=== PATIENT | male | born 1980 | race Two or more races ===

== ENCOUNTER 2019-02-25 09:52 | Emergency (ER) | payer OTHER ==
[2019-02-25 10:08] VITALS: BP 136/87; PULSE 70; TEMP 97.9; BMI 35.4
--- NOTE | 2019-02-25 11:42 | PDOC ---
History of Present Illness - General Chief Complaint: Injury Stated Complaint: LT. HAND LARCERATION Time Seen by Provider: 02/25/19 11:17 History Source: Patient Exam Limitations: No Limitations - History of Present Illness Initial Comments: 02/25/19 11:37 Patient here for evaluation of left thumb states sustained an avulsion laceration last Monday, was seen at an urgent care where they used some type of cautery to states the bleeding from the flap of skin. Patient lost approximately 1 cm piece of padding of the left ulnar aspect thumb. States since that time has had pain, that radiates up to his wrist and difficulty flexing thumb due to this pain. Denies fever, redness, or any purulent drainage. Occurred: reports: just prior to arrival Severity: reports: mild, moderate Associated Symptoms (Fall): denies symptoms Past History - Travel Traveled outside of the country in the last 30 days: No Close contact w/someone who was outside of country & ill: No - Past Medical History Allergies/Adverse Reactions: Allergies Allergy/AdvReac Type Severity Reaction Status Date / Time No Known Allergies Allergy Verified 02/25/19 10:03 Home Medications: Ambulatory Orders NK [No Known Home Medication] 02/25/19 COPD: No - Immunization History Immunization Up to Date: Yes - Suicide/Smoking/Psychosocial Hx Smoking History: Never smoked Hx Alcohol Use: No Drug/Substance Use Hx: No Review of Systems - Review of Systems Able to Perform ROS?: Yes Is the patient limited Thai proficient: Yes Constitutional: Yes: Symptoms Reported, See HPI, Malaise HEENTM: No: Symptoms Reported Respiratory: No: Symptoms reported Integumentary: Yes: Symptoms Reported, See HPI, Lesions. No: Erythema All Other Systems: Reviewed and Negative *Physical Exam - Vital Signs Last Vital Signs Temp Pulse Resp BP Pulse Ox 97.9 F 70 17 136/87 99 02/25/19 10:04 02/25/19 10:04 02/25/19 10:04 02/25/19 10:04 02/25/19 10:04 - Physical Exam General Appearance: Yes: Nourished, Appropriately Dressed, Apparent Distress HEENT: positive: [place], Normal ENT Inspection, TMs Normal, Pharynx Normal Neck: positive: Supple Extremity: positive: Normal Range of Motion, Tender. negative: Normal Inspection, Swelling Integumentary: positive: Dry, Warm, Other (patient with full-thickness avulsion laceration to the radial aspect of his left thumb distal pad. Is a proximally 1 cm in size. Range of motion is intact however very painful to flex and extend due to pain at distal aspect. Nail is not involved. Her edema, no evidence of infection. Has multiple areas of cauterization/deadened skin. 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 No evidence of infection, however has residual tenderness due to probable exposure of nerve another vasculature that was cauterized. Wound was cleaned, dressed with Xeroform gauze/Telfa dressing/padding and splint applied. Patient encouraged to keep hand elevated, change dressing daily, and will be given a hand specialist for follow-up this week *DC/Admit/Observation/Transfer Diagnosis at time of Disposition: Laceration of finger Qualifiers: Encounter type: initial encounter Finger: thumb Damage to nail status: without damage Foreign body presence: without foreign body Laterality: left Qualified Code(s): S61.012A - Laceration without foreign body of left thumb without damage to nail, initial encounter - Discharge Dispostion Disposition: HOME Condition at time of disposition: Stable Decision to Admit order: No - Referrals Referrals: ON STAFF,NOT [Primary Care Provider] - Gene Guaman MD [Staff Physician] - - Patient Instructions Printed Discharge Instructions: DI for Avulsion Laceration (Not Requiring Sutures) Additional Instructions: Rest, elevate, avoid strenuous activity or heavy lifting until healed Leave dressing on for the next 48 hours, Then may remove outer Telfa dressing gently and wash area with soap and water. changing dressing and washing hand gently Reapply dressing daily for the next 5 days On day #6 keep the wound protected and cover as needed allowing wound to start to dry May use Tylenol or Motrin for pain relief - Post Discharge Activity Forms/Work/School Notes: Back to Work
== END 2019-02-25 11:54 | disposition home or self-care (01) ==
LOC: JERFT 09:52
PROC: 2W3EX1Z Immobilization of Right Hand using Splint (ICD-10-PCS; principal; 2019-02-25)
DX: S61.012D Laceration without foreign body of left thumb without damage to nail, subsequent encounter (principal)
CPT/HCPCS: 29125; 99281-25

== ENCOUNTER 2020-07-28 09:01 | Emergency (ER) | payer OTHER ==
[2020-07-28 09:09] VITALS: BMI 39.4
[2020-07-28] MEDS ORDERED: ACETAMINOPHEN 1000 MG/100 ML VIAL (NON FORMULARY) IVPB ONE (09:49)
[2020-07-28] MEDS ORDERED: FAMOTIDINE 20 MG/50 ML IVPB 20 MG/50 ML MG IVPB ONE ×2 (09:49→09:56)
[2020-07-28] MEDS ORDERED: MAG HYDROX/AL HYDROX/SIMETH 30 ML UNIT-DOSE CUP PO ONE (09:49)
[2020-07-28] MEDS ORDERED: ACETAMINOPHEN INJECTION 100 ML IVPB ONE (09:55)
[2020-07-28] MEDS ORDERED: MAG HYDROX/AL HYDROX/SIMETH 30 ML UNIT-DOSE CUP ONE (09:56)
[2020-07-28 10:00] LABS: PH,URINE 5.5 (5.0-8.0); URINE APPEARANCE CLEAR; URINE BILIRUBIN NEGATIVE (NEGATIVE); URINE COLOR YELLOW; URINE GLUCOSE (UA) NEGATIVE (NEGATIVE); URINE KETONE NEGATIVE (NEGATIVE); URINE LEUK ESTERASE NEGATIVE (NEGATIVE); URINE NITRITE NEGATIVE (NEGATIVE); URINE PROTEIN NEGATIVE (NEGATIVE); URINE UROBILINOGEN 0.2 mg/dL (0.2-1.0)
--- OUTSIDE RECORDS SUMMARY | 2020-07-28 10:09 | XMS ---
:1980 Author Organization [facility] Care Team Providers Name Role Phone Merrill Stapleton MD Unavailable Unavailable ED STAFF PHYSICIAN Unavailable Unavailable Re-disclosure Warning The records that you are about to access may contain information from federally- assisted alcohol or drug abuse programs. If such information is present, then the following federally mandated warning applies: This information has been disclosed to you from records protected by federal confidentiality rules (42 CFR part 2). The federal rules prohibit you from making any further disclosure of this information unless further disclosure is expressly permitted by the written consent of the person to whom it pertains or as otherwise permitted by 42 CFR part 2. A general authorization for the release of medical or other information is NOT sufficient for this purpose. The Federal rules restrict any use of the information to criminally investigate or prosecute any alcohol or drug abuse patient.The records that you are about to access may contain highly sensitive health information, the redisclosure of which is protected by Article 27-F of the [facility] Public Health law. If you continue you may haveaccess to information: Regarding HIV / AIDS; Provided by facilities licensed or operated by the [facility] Office of Mental Health; or Provided by the [facility] Office for People With Developmental Disabilities. If such information is present, then the following [facility] mandated warning applies: This information has been disclosed to you from confidential records which are protected by state law. State law prohibits you from making any further disclosure of this information without the specific written consent of the person to whom it pertains, or as otherwise permitted by law. Any unauthorized further disclosure in violation of state law may result in a fine or group home sentence or both. A general authorization for the release of medical or other information is NOT sufficient authorization for further disclosure. 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 Food allergy No Known Food No Known Food [facility] Drug allergy No Known Drug No Known Drug [facility] Encounters Encounter Providers Location Date Indications Data Source(s ) Emergency Attender: STAFF ED H 05/05/2020 [facility] STAFF PHYSICIAN 09:01:00 PM EDT [facility] - 05/05/2020 11:28:00 PM EDT Patient discharged. Emergency Attender: Merrill 10/07/2019 06:48:00 TESTICULAR PAIN Shadia Stapleton MD EST - 10/07/2019 [facility] 10:17:00 PM EST TESTICULAR PAIN [facility] Patient discharged. Emergency Attender: Merrill 09/30/2019 11:03:00 ABD PAIN Shadia Stapleton MD EST - 09/30/2019 [facility] 03:20:00 PM EST ABD PAIN AUTO Patient discharged. Immunizations Vaccine Date Status Description Data Source(s) Tdap 05/05/2020 10:47:00 PM EDT completed [facility] Medications Medication Brand Start Product Dose Route [facility] Indications Reaction Description Data Name Date Form Instructions Instructions Source(s) Sumatriptan Sumatr // TABLET 25 mg ORAL complet [facility] 25 MG Oral iptan 2017 ed [facility] Tablet Succin 07:59: Hospital [Imitrex] ate 00 PM Sumatriptan EDT Succinate Methocarbam Methoc 03/25/ TABLET 1500 ORAL complet [facility] ol 750 MG arbamo 2017 mg ed [facility] Oral Tablet l 07:59: Hospit al [Robaxin] 00 PM EDT Sumatriptan Sumatr // TABLET 25 mg ORAL complet [facility] 25 MG Oral iptan 2017 ed [facility] Tablet Succin 07:59: Hospital [Imitrex] ate 00 PM Sumatriptan EDT Succinate Methocarbam Methoc 03/25/ TABLET 1500 ORAL complet [facility] ol 750 MG arbamo 2017 mg ed [facility] Oral Tablet l 07:59: Hospit al [Robaxin] 00 PM EDT doxycycline Doxycy 05/12/ CAPSULE, 100 ORAL complet [facility] hyclate 100 nieves 2014 DELAYED mg [facility] MG Oral Hyclat 02:49: RELEASE [facility] Capsule e 00 PM [Vibramycin EDT ] Doxycycline Hyclate doxycycline Doxycy 05// CAPSULE, 100 ORAL complet [facility] hyclate 100 nieves 2014 DELAYED mg [facility] MG Oral Hyclat 02:49: RELEASE [facility]pi [facility] Capsule e 00 PM [Vibramycin EDT ] Doxycycline Hyclate Amoxicillin Amoxic 05// TABLET 875 ORAL complet [facility] 875 MG / illin/ 2014 mg ed [facility] Clavulanate Clavun 02:49: Hosp ital 125 MG Oral ate 00 PM Tablet 875-12 EDT Amoxicillin 5 /Clavunate Tablet 875-125 * Tablet* Amoxicillin Amoxic // TABLET 875 ORAL complet [facility] 875 MG / illin/ 2014 mg ed [facility] Clavulanate Clavun 02:49: Hosp ital 125 MG Oral ate 00 PM Tablet 875-12 EDT Amoxicillin 5 /Clavunate Tablet 875-125 * Tablet* Cephalexin Cephal // CAPSULE 500 ORAL complet [facility] 500 MG Oral exin 2014 mg ed [facility] Capsule Monohy 07:49: Hospital Cephalexin drate 00 AM Monohydrate EDT Cephalexin Cephal // CAPSULE 500 ORAL complet [facility] 500 MG Oral exin 2014 mg ed [facility] Capsule Monohy 07:49: Hospital Cephalexin drate 00 AM Monohydrate EDT Ibuprofen ibupro 1 complet [facility] 800 MG Oral fen ed [facility] Tablet 800 mg Medical ibuprofen Tablet Center 800 mg , Tablet, Ordere Ordered By: d By: Justin Pittman, PADirection PADire s: 1 tablet ctions oral every : 1 eight hours tablet PRN oral pain-modera every te eight hours PRN pain-m oderat e Cephalexin cephal 1 complet Jarek t 500 MG Oral exin ed [facility] Capsule 500 mg Medical cephalexin Capsul Center 500 mg e, Capsule, Ordere Ordered By: d By: Justin Pittman PADirection PADire s: 1 ctions capsule : 1 oral four capsul times daily e oral four times daily None UNSPECIF 1 complet [facility] {Each ed [facility] } [facility] None UNSPECIF 1 complet [facility] {Each ed [facility] Insurance Providers Payer name Policy type Policy ID Covered Covered constitution party's Policy P ivett / Coverage constitution party ID relationship to Romano Inf ormation type romano O [employer]JACKIE [id number] PT [id number] M MEDICAID [id number] PT [id number] [employer]IE [id number] PT [id number] A [employer] OF [id number] SP [id number] Exterity Problems, Conditions, and Diagnoses Code Display Name Description Problem Type Effective Dates Data Source(s) Y99.9 Unspecified UNSPECIFIED Diagnosis 05/05/2020 [facility] external cause EXTERNAL CAUSE 09:01:00 PM EDT [facility] status STATUS Y92.[address] IN Diagnosis 05/05/2020 Jarek Momin in unspecified UNSP NON-INSTITUT 09:01:00 PM ED T [facility] Center non-institutional (PRIVATE) (private) RESIDENCE residence as the PLACE place of occurrence of the external cause Y93.9 Activity, ACTIVITY, Diagnosis 05/05/2020 [facility] unspecified UNSPECIFIED 09:01:00 PM EDT Medical Center W13.0XXA Fall from, out of FALL FROM, OUT OF Diagnosis 05/05/2020 [facility] Liliane or through OR THROUGH 09:01:00 PM EDT Medical C enter balcony, initial [place], INITIAL encounter ENCOUNTER S80.11XA Contusion of CONTUSION OF Diagnosis 05/05/2020 [facility] right lower leg, RIGHT LOWER LEG, 09:01:00 PM E Medical Center initial encounter INITIAL ENCOUNTER S80.811A Abrasion, right ABRASION, RIGHT Diagnosis 05/05/2020 [place] lower leg, LOWER LEG, 09:01:00 PM EDT Medical C enter initial encounter INITIAL ENCOUNTER M79.606 Pain in leg, PAIN IN LEG, Diagnosis 05/05/2020 [facility] unspecified UNSPECIFIED 09:01:00 PM EDT Medical Center R31.9 Hematuria, R31.9 Diagnosis 10/07/2019 [place] unspecified 07:49:00 PM EST Hospital N50.811 Right testicular N50.811 [facility] Hospital N50.812 Left testicular N50.812 Diagnosis 10/07/2019 [facility] ins pain 07:49:00 PM EST Hospital R10.9 Unspecified R10.9 Diagnosis 09/30/2019 [place] abdominal pain 12:06:00 PM EST [facility] Surgeries/Procedures Procedure Description Date Indications Data Source(s) Echography of scrotum 10/07/2019 [facility] and contents (procedure) 12:00:00 AM EST Computed tomography of 09/30/2019 [facility] abdomen and pelvis with 12:00:00 AM EST intravenous and oral contrast NORMAL SALINE SOLUTION 09/30/2019 [facility] INFUS 12:00:00 AM EST LOCM 200-299MG/ML 09/30/2019 [facility] IODINE,1ML 12:00:00 AM EST LOW OSMOLAR 300-399 09/30/2019 [facility] mg/mi IOP 12:00:[address] abd & pelv w/contrast 09/30/2019 [facility] 12:00:00 AM EST Assay of lipase 09/30/2019 [facility] 12:00:00 AM EST Comprehen metabolic 09/30/2019 [facility] panel 12:00:00 AM EST Complete cbc w/auto diff 09/30/2019 [facility] wbc 12:00:00 AM EST Urinalysis auto w/o 09/30/2019 [facility] scope 12:00:00 AM EST Emergency dept visit 09/30/2019 [facility] 12:00:00 AM EST Computed tomography of 09/30/2019 [facility] abdomen and pelvis with 12:00:00 AM EST intravenous and oral contrast Results ID Date Data Source [id number] 07/20/2020 12:00:00 AM EDT [facility] Name Value Range Interpretation Code Description Data Ankita rce(s) Supporting Document(s ) SARS-CoV-2 [facility] This lab was ordered by DR.TIMOTHY CARSON and reported by [facility] [place]. ID Date Data Source [id number] 01/31/2020 09:26:00 PM EDT [facility] Name Value Range Interpretation Code Description Data Ankita rce(s) Supporting Document(s ) SARS-COV-2 [facility] PCR This lab was ordered by [facility] 997 and reported by [facility]. ID Date Data Source [id number] 01/13/2020 09:48:00 PM EDT [facility] Name Value Range Interpretation Code Description Data Ankita rce(s) Supporting Document(s ) 2019-NCOV [facility] RNA PNL XXX ELTON+PROBE This lab was ordered by [facility] [address] and reported by [facility]. ID Date Data Source [id number] 10/07/2019 08:47:00 PM [facility] Name Value Range Interpretation Description Data Sup porting Code Source(s) Document(s ) Hemoglobin.g NEGATIVE [facility] nal [Presence] in Stool --1st specimen ID Date Data Source [id number] 10/07/2019 08:38:00 PM [facility] Name Value Range Interpretation Description Data Sup porting Code Source(s) Document(s ) Leukocyte NEGATIVE [place] esterase [facility] [Presence] in Urine by Test strip ID Date Data Source [id number] 10/07/2019 08:38:00 PM [facility] Name Value Range Interpretation Description Data Sup porting Code Source(s) Document(s ) URINE NEGATIVE [place] NITRITES Hospital ID Date Data Source [id number] 10/07/2019 08:38:00 PM [facility] Name Value Range Interpretation Description Data Sup porting Code Source(s) Document(s ) Erythrocytes NEGATIVE [place] [#/volume] in Hospital Urine by Test strip ID Date Data Source [id number] 10/07/2019 08:38:00 PM EST [place] [facility] Name Value Range Interpretation Code Description Data Ankita rce(s) Supporting Document(s ) Bilirubin. NEGATIVE [place] total Hospital [Presence] in Urine by Test strip ID Date Data Source [id number] 10/07/2019 08:38:00 PM EST [place] [facility] Name Value Range Interpretation Description Data Sup porting Code Source(s) Document(s ) Urobilinogen 1.0 [place] [Units/volume] mg/dL Hospital in Urine by Test strip ID Date Data Source [id number] 10/07/2019 08:38:00 PM EST [place] Name Value Range Interpretation Description Data Sup porting Code Source(s) Document(s ) Ketones NEGATIVE [place] [Mass/volume Hospital ] in Urine by Test strip ID Date Data Source [id number] 10/07/2019 08:38:00 PM EST [place] [facility] Name Value Range Interpretation Description Data Sup porting Code Source(s) Document(s ) Glucose NEGATIVE [place] [Mass/volume Hospital ] in Urine by Test strip ID Date Data Source [id number] 10/07/2019 08:38:00 PM EST [place] Name Value Range Interpretation Description Data Sup porting Code Source(s) Document(s ) Protein NEGATIVE [place] [Presence] Hospital in Urine by Test strip ID Date Data Source [id number] 10/07/2019 08:38:00 PM EST [facility] Name Value Range Interpretation Code Description Data Ankita rce(s) Supporting Document(s ) pH of Urine 5.5 [place] by Test Hospital strip ID Date Data Source [id number] 10/07/2019 08:38:00 PM EST [place] [facility] Name Value Range Interpretation Code Description Data Supporting Source(s) Document(s ) Specific 1.029 [place] gravity of Hospital Urine by Test strip ID Date Data Source [id number] 10/07/2019 08:38:00 PM [facility] Name Value Range Interpretation Description Data Sup porting Code Source(s) Document(s ) Clarity in Urine CLEAR [place] by Refractometry Hospital automated ID Date Data Source [id number] 10/07/2019 08:38:00 PM [facility] Name Value Range Interpretation Code Description Data Ankita rce(s) Supporting Document(s ) Color of YELLOW [place] Urine Hospital ID Date Data Source [id number] 10/07/2019 07:45:00 PM [facility] Value Range Interpretation Description Data Sup porting Code Source(s) Document(s ) Aspartate 54 U/L [facility] aminotransferase [facility] [Enzymatic Hospital activity/volume] in Serum or Plasma ID Date Data Source [id number] 10/07/2019 07:45:00 PM [facility] Name Value Range Interpretation Description Data Sup porting Code Source(s) Document(s ) Alanine 89 U/L [place] aminotransferase [facility] [Enzymatic Hospital activity/volume] in Serum or Plasma ID Date Data Source [id number] 10/07/2019 07:45:00 PM [facility] Name Value Range Interpretation Description Data Sup porting Code Source(s) Document(s ) Alkaline 70 U/L [place] phosphatase Hospital [Enzymatic activity/volume ] in Serum or Plasma ID Date Data Source [id number] 10/07/2019 07:45:00 PM [facility] Name Value Range Interpretation Description Data Sup porting Code Source(s) Document(s ) Bilirubin.t 0.6 mg/dL [facility] [Mass/volum e] in Serum or Plasma ID Date Data Source [id number] 10/07/2019 07:45:00 PM EST [place] Name Value Range Interpretation Code Description Data Ankita rce(s) Supporting Document(s ) Albumin/Glob 1.8 [place] ulin [Mass Hospital Ratio] in Serum or Plasma ID Date Data Source [id number] 10/07/2019 07:45:00 PM EST [facility] Name Value Range Interpretation Description Data Sup porting Code Source(s) Document(s ) Albumin 4.8 g/dL [place] [Mass/volume Hospital ] in Serum or Plasma ID Date Data Source [id number] 10/07/2019 07:45:00 PM EST [facility] Name Value Range Interpretation Description Data Sup porting Code Source(s) Document(s ) Protein 7.5 g/dL [place] [Mass/volume Hospital ] in Serum or Plasma ID Date Data Source [id number] 10/07/2019 07:45:00 PM EST [facility] Name Value Range Interpretation Description Data Sup porting Code Source(s) Document(s ) Calcium 9.5 mg/dL [place] [Mass/volume Hospital ] in Serum or Plasma ID Date Data Source [id number] 10/07/2019 07:45:00 PM EST [place] [facility] Name Value Range Interpretation Code Description Data Ankita rce(s) Supporting Document(s ) Urea 23.8 [place] nitrogen/Cre Hospital atinine [Mass Ratio] in Serum or Plasma ID Date Data Source [id number] 10/07/2019 07:45:00 PM EST [place] [facility] Name Value Range Interpretation Description Data Sup porting Code Source(s) Document(s ) Creatinine 0.8 mg/dL [place] [Mass/volume] Hospital in Serum or Plasma ID Date Data Source [id number] 10/07/2019 07:45:00 PM EST [place] [facility] Name Value Range Interpretation Description Data Sup porting Code Source(s) Document(s ) Urea 19 mg/dL [place] nitrogen Hospital [Mass/volume ] in Serum or Plasma ID Date Data Source [id number] 10/07/2019 07:45:00 PM EST [place] [facility] Name Value Range Interpretation Code Description Data Ankita rce(s) Supporting Document(s ) Anion gap in 10 [place] Serum or Hospital Plasma ID Date Data Source [id number] 10/07/2019 07:45:00 PM [facility] Name Value Range Interpretation Description Data Sup porting Code Source(s) Document(s ) Carbon 31 mmol/L [place] dioxide, Hospital total [Moles/volu me] in Serum or Plasma ID Date Data Source [id number] 10/07/2019 07:45:00 PM EST [facility] Name Value Range Interpretation Description Data Sup porting Code Source(s) Document(s ) Chloride 100 [place] [Moles/volum mmol/L Hospital e] in Serum or Plasma ID Date Data Source [id number] 10/07/2019 07:45:00 PM EST [facility] Name Value Range Interpretation Description Data Sup porting Code Source(s) Document(s ) Potassium 4.1 [place] [Moles/volume mmol/L Hospital ] in Serum or Plasma ID Date Data Source [id number] 10/07/2019 07:45:00 PM EST [place] [facility] Name Value Range Interpretation Description Data Sup porting Code Source(s) Document(s ) Sodium 137 mmol/L [place] [Moles/volu Hospital me] in Serum or Plasma ID Date Data Source [id number] 10/07/2019 07:45:00 PM EST [place] [facility] Name Value Range Interpretation Description Data Sup porting Code Source(s) Document(s ) Glucose 102 mg/dL [place] [Mass/volume Hospital ] in Serum or Plasma ID Date Data Source [id number] 10/07/2019 07:45:00 PM EST [facility] Name Value Range Interpretation Code Description Data Supporting Source(s) Document(s ) NUCLEATED RBCS 0.0 % [place] (AUTO Hospital DIFF%)DIS ID Date Data Source [id number] 10/07/2019 07:45:00 PM [facility] Name Value Range Interpretation Description Data Sup porting Code Source(s) Document(s ) Differential AUTOMATED [place] cell count [facility] method - Blood ID Date Data Source [id number] 10/07/2019 07:45:00 PM [facility] Value Range Interpretation Description Data Sup porting Code Source(s) Document(s ) Immature 0.03 [place] granulocytes 10*3/uL Hospital [#/volume] in Blood by Automated count ID Date Data Source [id number] 10/07/2019 07:45:00 PM [facility] Name Value Range Interpretation Description Data Sup porting Code Source(s) Document(s ) Basophils 0.03 [place] [#/volume] in 10*3/uL Hospital Blood by Automated count ID Date Data Source [id number] 10/07/2019 07:45:00 PM [facility] Name Value Range Interpretation Description Data Sup porting Code Source(s) Document(s ) Eosinophils 0.06 [place] [#/volume] in 10*3/uL Hospital Blood by Automated count ID Date Data Source [id number] 10/07/2019 07:45:00 PM EST [facility] Name Value Range Interpretation Description Data Sup porting Code Source(s) Document(s ) Monocytes 0.52 [place] [#/volume] in 10*3/uL Hospital Blood by Automated count ID Date Data Source [id number] 10/07/2019 07:45:00 PM EST [facility] Value Range Interpretation Description Data Sup porting Code Source(s) Document(s ) Lymphocytes 2.02 [place] [#/volume] in 10*3/uL Hospital Blood by Automated count ID Date Data Source [id number] 10/07/2019 07:45:00 PM EST [facility] Value Range Interpretation Description Data Sup porting Code Source(s) Document(s ) Neutrophils 4.57 [place] [#/volume] in 10*3/uL [facility] Blood by Automated count ID Date Data Source [id number] 10/07/2019 07:45:00 PM [facility] Value Range Interpretation Description Data Sup porting Code Source(s) Document(s ) Nucleated 0.0 % [place] erythrocytes/10 Hospital 0 leukocytes [Ratio] in Blood by Automated count ID Date Data Source [id number] 10/07/2019 07:45:00 PM [facility] Value Range Interpretation Description Data Sup porting Code Source(s) Document(s ) Immature 0.4 % [place] granulocytes/10 Hospital 0 leukocytes in Blood by Automated count ID Date Data Source [id number] 10/07/2019 07:45:00 PM [facility] Value Range Interpretation Description Data Sup porting Code Source(s) Document(s ) Basophils/100 0.4 % [place] leukocytes in Hospital Blood by Automated count ID Date Data Source [id number] 10/07/2019 07:45:00 PM [facility] Value Range Interpretation Description Data Sup porting Code Source(s) Document(s ) Eosinophils/100 0.8 % [place] leukocytes in Hospital Blood by Automated count ID Date Data Source [id number] 10/07/2019 07:45:00 PM [facility] Value Range Interpretation Description Data Sup porting Code Source(s) Document(s ) Monocytes/100 7.2 % [place] leukocytes in Hospital Blood by Automated count ID Date Data Source [id number] 10/07/2019 07:45:00 PM EST [facility] Name Value Range Interpretation Description Data Sup porting Code Source(s) Document(s ) Lymphocytes/10 27.9 % [place] 0 leukocytes Hospital in Blood by Automated count ID Date Data Source [id number] 10/07/2019 07:45:00 PM EST [facility] Name Value Range Interpretation Description Data Sup porting Code Source(s) Document(s ) Neutrophils/10 63.3 % [place] 0 leukocytes Hospital in Blood by Automated count ID Date Data Source [id number] 10/07/2019 07:45:00 PM EST [facility] Value Range Interpretation Description Data Sup porting Code Source(s) Document(s ) Platelet mean 10.7 fL [place] volume Hospital [Entitic volume] in Blood by Automated count ID Date Data Source [id number] 10/07/2019 07:45:00 PM EST [facility] Value Range Interpretation Description Data Sup porting Code Source(s) Document(s ) Platelets 235 [place] [#/volume] in 10*3/uL Hospital Blood by Automated count ID Date Data Source [id number] 10/07/2019 07:45:00 PM [facility] Value Range Interpretation Description Data Sup porting Code Source(s) Document(s ) Erythrocyte 12.6 % [place] distribution Hospital width [Ratio] by Automated count ID Date Data Source [id number] 10/07/2019 07:45:00 PM EST [facility] Name Value Range Interpretation Description Data Sup porting Code Source(s) Document(s ) Erythrocyte mean 34.2 [place] corpuscular g/dL Hospital hemoglobin concentration [Mass/volume] by Automated count ID Date Data Source [id number] 10/07/2019 07:45:00 PM [facility] Value Range Interpretation Description Data Sup porting Code Source(s) Document(s ) Erythrocyte 29.2 pg [facility] corpuscular hemoglobin [Entitic mass] by Automated count ID Date Data Source [id number] 10/07/2019 07:45:00 PM [facility] Value Range Interpretation Description Data Sup porting Code Source(s) Document(s ) Erythrocyte 85.3 fL [facility] Hospital corpuscular volume [Entitic volume] by Automated count ID Date Data Source [id number] 10/07/2019 07:45:00 PM [facility] Value Range Interpretation Description Data Sup porting Code Source(s) Document(s ) Hematocrit 46.5 % [place] [Volume Hospital Fraction] of Blood by Automated count ID Date Data Source [id number] 10/07/2019 07:45:00 PM [facility] Value Range Interpretation Description Data Sup porting Code Source(s) Document(s ) Hemoglobin 15.9 g/dL [place] [Mass/volume] Hospital in Blood ID Date Data Source [id number] 10/07/2019 07:45:00 PM [facility] Value Range Interpretation Description Data Sup porting Code Source(s) Document(s ) Erythrocytes 5.45 [place] [#/volume] in 10*6/uL Hospital Blood by Automated count ID Date Data Source [id number] 10/07/2019 07:45:00 PM [facility] Value Range Interpretation Description Data Sup porting Code Source(s) Document(s ) Leukocytes 7.2 [place] [#/volume] in 10*3/uL Hospital Blood by Automated count ID Date Data Source [id number] 09/30/2019 01:20:00 PM EST [facility] Name Value Range Interpretation Description Data Sup porting Code Source(s) Document(s ) Leukocyte NEGATIVE [place] esterase [facility] [Presence] in Urine by Test strip ID Date Data Source [id number] 09/30/2019 01:20:00 PM EST [facility] Name Value Range Interpretation Description Data Sup porting Code Source(s) Document(s ) URINE NEGATIVE [place] NITRITES Hospital ID Date Data Source [id number] 09/30/2019 01:20:00 PM [facility] Name Value Range Interpretation Description Data Sup porting Code Source(s) Document(s ) Erythrocytes NEGATIVE [place] [#/volume] in Hospital Urine by Test strip ID Date Data Source [id number] 09/30/2019 01:20:00 PM [facility] Name Value Range Interpretation Code Description Data Ankita rce(s) Supporting Document(s ) Bilirubin. NEGATIVE [place] total Hospital [Presence] in Urine by Test strip ID Date Data Source [id number] 09/30/2019 01:20:00 PM [facility] Name Value Range Interpretation Description Data Sup porting Code Source(s) Document(s ) Urobilinogen 0.2 [place] [Units/volume] mg/dL Hospital in Urine by Test strip ID Date Data Source [id number] 09/30/2019 01:20:00 PM EST [facility] Name Value Range Interpretation Description Data Sup porting Code Source(s) Document(s ) Ketones NEGATIVE [place] [Mass/volume Hospital ] in Urine by Test strip ID Date Data Source [id number] 09/30/2019 01:20:00 PM [facility] Name Value Range Interpretation Description Data Sup porting Code Source(s) Document(s ) Glucose NEGATIVE [place] [Mass/volume Hospital ] in Urine by Test strip ID Date Data Source [id number] 09/30/2019 01:20:00 PM EST [facility] Name Value Range Interpretation Description Data Sup porting Code Source(s) Document(s ) Protein NEGATIVE [place] [Presence] Hospital in Urine by Test strip ID Date Data Source [id number] 09/30/2019 01:20:00 PM EST [facility] Name Value Range Interpretation Code Description Data Ankita rce(s) Supporting Document(s ) pH of Urine 5.5 [place] by Test Hospital strip ID Date Data Source [id number] 09/30/2019 01:20:00 PM EST [facility] Name Value Range Interpretation Code Description Data Supporting Source(s) Document(s ) Specific 1.015 [place] gravity of Hospital Urine by Test strip ID Date Data Source [id number] 09/30/2019 01:20:00 PM EST [facility] Name Value Range Interpretation Description Data Sup porting Code Source(s) Document(s ) Clarity in Urine CLEAR [facility] by [facility] automated ID Date Data Source [id number] 09/30/2019 01:20:00 PM EST [facility] Name Value Range Interpretation Code Description Data Ankita rce(s) Supporting Document(s ) Color of YELLOW [place] Urine Hospital ID Date Data Source [id number] 09/30/2019 12:12:00 PM EST [facility] Name Value Range Interpretation Code Description Data Ankita rce(s) Supporting Document(s ) Lipase 42 U/L [place] [Enzymatic Hospital activity/vo lume] in Serum or Plasma ID Date Data Source [id number] 09/30/2019 12:12:00 PM EST [facility] Name Value Range Interpretation Code Description Data Ankita rce(s) Supporting Document(s ) Lipase 42 U/L [place] [Enzymatic Hospital activity/vo lume] in Serum or Plasma ID Date Data Source [id number] 09/30/2019 12:12:00 PM [facility] Name Value Range Interpretation Description Data Sup porting Code Source(s) Document(s ) Aspartate 37 U/L [facility] aminotransferase [place] [Enzymatic Hospital activity/volume] in Serum or Plasma ID Date Data Source [id number] 09/30/2019 12:12:00 PM [facility] Value Range Interpretation Description Data Sup porting Code Source(s) Document(s ) Alanine 51 U/L [facility] aminotransferase [place] [Enzymatic Hospital activity/volume] in Serum or Plasma ID Date Data Source [id number] 09/30/2019 12:12:00 PM [facility] Name Value Range Interpretation Description Data Sup porting Code Source(s) Document(s ) Alkaline 63 U/L [place] phosphatase Hospital [Enzymatic activity/volume ] in Serum or Plasma ID Date Data Source [id number] 09/30/2019 12:12:00 PM [facility] Name Value Range Interpretation Description Data Sup porting Code Source(s) Document(s ) Bilirubin.t 0.4 mg/dL [facility] [Mass/volum e] in Serum or Plasma ID Date Data Source [id number] 09/30/2019 12:12:00 PM [facility] Value Range Interpretation Code Description Data Ankita rce(s) Supporting Document(s ) Albumin/Glob 2.0 [place] ulin [Mass Hospital Ratio] in Serum or Plasma ID Date Data Source [id number] 09/30/2019 12:12:00 PM [facility] Value Range Interpretation Description Data Sup porting Code Source(s) Document(s ) Albumin 4.7 g/dL [place] [Mass/volume Hospital ] in Serum or Plasma ID Date Data Source [id number] 09/30/2019 12:12:00 PM [facility] Name Value Range Interpretation Description Data Sup porting Code Source(s) Document(s ) Protein 7.1 g/dL [place] [Mass/volume Hospital ] in Serum or Plasma ID Date Data Source [id number] 09/30/2019 12:12:00 PM [facility] Name Value Range Interpretation Description Data Sup porting Code Source(s) Document(s ) Calcium 9.3 mg/dL [place] [Mass/volume Hospital ] in Serum or Plasma ID Date Data Source [id number] 09/30/2019 12:12:00 PM [facility] Name Value Range Interpretation Code Description Data Ankita rce(s) Supporting Document(s ) Urea 20.0 [place] nitrogen/Cre Hospital atinine [Mass Ratio] in Serum or Plasma ID Date Data Source [id number] 09/30/2019 12:12:00 PM [facility] Name Value Range Interpretation Description Data Sup porting Code Source(s) Document(s ) Creatinine 0.8 mg/dL [place] [Mass/volume] Hospital in Serum or Plasma ID Date Data Source [id number] 09/30/2019 12:12:00 PM [facility] Name Value Range Interpretation Description Data Sup porting Code Source(s) Document(s ) Urea 16 mg/dL [place] nitrogen Hospital [Mass/volume ] in Serum or Plasma ID Date Data Source [id number] 09/30/2019 12:12:00 PM [facility] Name Value Range Interpretation Code Description Data Ankita rce(s) Supporting Document(s ) Anion gap in 10 [place] Serum or Hospital Plasma ID Date Data Source [id number] 09/30/2019 12:12:00 PM EST [facility] Name Value Range Interpretation Description Data Sup porting Code Source(s) Document(s ) Carbon 28 mmol/L [place] dioxide, Hospital total [Moles/volu me] in Serum or Plasma ID Date Data Source [id number] 09/30/2019 12:12:00 PM EST [facility] Name Value Range Interpretation Description Data Sup porting Code Source(s) Document(s ) Chloride 104 [place] [Moles/volum mmol/L Hospital e] in Serum or Plasma ID Date Data Source [id number] 09/30/2019 12:12:00 PM EST [facility] Name Value Range Interpretation Description Data Sup porting Code Source(s) Document(s ) Potassium 4.3 [place] [Moles/volume mmol/L Hospital ] in Serum or Plasma ID Date Data Source [id number] 09/30/2019 12:12:00 PM EST [facility] Name Value Range Interpretation Description Data Sup porting Code Source(s) Document(s ) Sodium 138 mmol/L [place] [Moles/volu Hospital me] in Serum or Plasma ID Date Data Source [id number] 09/30/2019 12:12:00 PM EST [facility] Name Value Range Interpretation Description Data Sup porting Code Source(s) Document(s ) Glucose 129 mg/dL [place] [Mass/volume Hospital ] in Serum or Plasma ID Date Data Source [id number] 09/30/2019 12:12:00 PM EST [facility] Name Value Range Interpretation Code Description Data Supporting Source(s) Document(s ) NUCLEATED RBCS 0.0 % [place] (AUTO Hospital DIFF%)DIS ID Date Data Source [id number] 09/30/2019 12:12:00 PM [facility] Name Value Range Interpretation Description Data Sup porting Code Source(s) Document(s ) Differential AUTOMATED [place] cell count Hospital method - Blood ID Date Data Source [id number] 09/30/2019 12:12:00 PM [facility] Name Value Range Interpretation Description Data Sup porting Code Source(s) Document(s ) Immature 0.01 [place] granulocytes 10*3/uL Hospital [#/volume] in Blood by Automated count ID Date Data Source [id number] 09/30/2019 12:12:00 PM [facility] Name Value Range Interpretation Description Data Sup porting Code Source(s) Document(s ) Basophils 0.02 [place] [#/volume] in 10*3/uL Hospital Blood by Automated count ID Date Data Source [id number] 09/30/2019 12:12:00 PM [facility] Name Value Range Interpretation Description Data Sup porting Code Source(s) Document(s ) Eosinophils 0.06 [place] [#/volume] in 10*3/uL Hospital Blood by Automated count ID Date Data Source [id number] 09/30/2019 12:12:00 PM [facility] Name Value Range Interpretation Description Data Sup porting Code Source(s) Document(s ) Monocytes 0.37 [place] [#/volume] in 10*3/uL Hospital Blood by Automated count ID Date Data Source [id number] 09/30/2019 12:12:00 PM [facility] Name Value Range Interpretation Description Data Sup porting Code Source(s) Document(s ) Lymphocytes 1.72 [place] [#/volume] in 10*3/uL Hospital Blood by Automated count ID Date Data Source [id number] 09/30/2019 12:12:00 PM [facility] Value Range Interpretation Description Data Sup porting Code Source(s) Document(s ) Neutrophils 3.76 [place] [#/volume] in 10*3/uL Hospital Blood by Automated count ID Date Data Source [id number] 09/30/2019 12:12:00 PM [facility] Value Range Interpretation Description Data Sup porting Code Source(s) Document(s ) Nucleated 0.0 % [place] erythrocytes/10 Hospital 0 leukocytes [Ratio] in Blood by Automated count ID Date Data Source [id number] 09/30/2019 12:12:00 PM [facility] Value Range Interpretation Description Data Sup porting Code Source(s) Document(s ) Immature 0.2 % [place] granulocytes/10 Hospital 0 leukocytes in Blood by Automated count ID Date Data Source [id number] 09/30/2019 12:12:00 PM [facility] Value Range Interpretation Description Data Sup porting Code Source(s) Document(s ) Basophils/100 0.3 % [place] leukocytes in [facility] Blood by Automated count ID Date Data Source [id number] 09/30/2019 12:12:00 PM [facility] Value Range Interpretation Description Data Sup porting Code Source(s) Document(s ) Eosinophils/100 1.0 % [place] leukocytes in [facility] Blood by Automated count ID Date Data Source [id number] 09/30/2019 12:12:00 PM [facility] Value Range Interpretation Description Data Sup porting Code Source(s) Document(s ) Monocytes/100 6.2 % [place] leukocytes in [facility] Blood by Automated count ID Date Data Source [id number] 09/30/2019 12:12:00 PM [facility] Value Range Interpretation Description Data Sup porting Code Source(s) Document(s ) Lymphocytes/10 29.0 % [place] 0 leukocytes Hospital in Blood by Automated count ID Date Data Source [id number] 09/30/2019 12:12:00 PM [facility] Value Range Interpretation Description Data Sup porting Code Source(s) Document(s ) Neutrophils/10 63.3 % [place] 0 leukocytes Hospital in Blood by Automated count ID Date Data Source [id number] 09/30/2019 12:12:00 PM [facility] Value Range Interpretation Description Data Sup porting Code Source(s) Document(s ) Platelet mean 10.7 fL [place] volume Hospital [Entitic volume] in Blood by Automated count ID Date Data Source [id number] 09/30/2019 12:12:00 PM [facility] Value Range Interpretation Description Data Sup porting Code Source(s) Document(s ) Platelets 243 [place] [#/volume] in 10*3/uL Hospital Blood by Automated count ID Date Data Source [id number] 09/30/2019 12:12:00 PM [facility] Value Range Interpretation Description Data Sup porting Code Source(s) Document(s ) Erythrocyte 12.5 % [place] distribution Hospital width [Ratio] by Automated count ID Date Data Source [id number] 09/30/2019 12:12:00 PM [facility] Value Range Interpretation Description Data Sup porting Code Source(s) Document(s ) Erythrocyte mean 34.1 [place] corpuscular g/dL Hospital hemoglobin concentration [Mass/volume] by Automated count ID Date Data Source [id number] 09/30/2019 12:12:00 PM [facility] Value Range Interpretation Description Data Sup porting Code Source(s) Document(s ) Erythrocyte 29.0 pg [place] mean Hospital corpuscular hemoglobin [Entitic mass] by Automated count ID Date Data Source [id number] 09/30/2019 12:12:00 PM [facility] Name Value Range Interpretation Description Data Sup porting Code Source(s) Document(s ) Erythrocyte 85.0 fL [facility] corpuscular volume [Entitic volume] by Automated count ID Date Data Source [id number] 09/30/2019 12:12:00 PM [facility] Value Range Interpretation Description Data Sup porting Code Source(s) Document(s ) Hematocrit 44.9 % [place] [Volume Hospital Fraction] of Blood by Automated count ID Date Data Source [id number] 09/30/2019 12:12:00 PM [facility] Value Range Interpretation Description Data Sup porting Code Source(s) Document(s ) Hemoglobin 15.3 g/dL [place] [Mass/volume] Hospital in Blood ID Date Data Source [id number] 09/30/2019 12:12:00 PM [facility] Value Range Interpretation Description Data Sup porting Code Source(s) Document(s ) Erythrocytes 5.28 [place] [#/volume] in 10*6/uL Hospital Blood by Automated count ID Date Data Source [id number] 09/30/2019 12:12:00 PM [facility] Value Range Interpretation Description Data Sup porting Code Source(s) Document(s ) Leukocytes 5.9 [place] [#/volume] in 10*3/uL Hospital Blood by Automated count Procedure Social History Code Duration Value Status Description Data Source(s ) Smoking 05/05/2020 Denies Ever completed Denies Ever Smoked [facility] 10:51:00 PM EDT Smoked [facility] enter Smoking 05/05/2020 Denies Ever completed Denies Ever Smoked [facility] 10:10:00 PM EDT [facility] enter Smoking 05/05/2020 Denies Ever completed Denies Ever Smoked [facility] 09:36:00 PM EDT Smoked [facility] enter Smoking 09/30/2019 Never smoked completed Never smoked [facility] 11:56:00 AM EST tobacco tobacco (finding) Ho spital (finding) Smoking Unknown if ever completed Unknown if ever [facility] smoked smoked Hospital Vital Signs ID Date Data Source UNK Name Value Range Interpretation Code Description Data Source(s) Body temperature 36.530147 36.183630 [facility] Respiratory rate 18 /min 18 /min [facility] Oxygen saturation 98 % 98 % [facility] osephs in Arterial blood [facility] by Pulse oximetry Heart rate 89 /min 89 /min [facility] Diastolic blood 82 mm[Hg] 82 mm[Hg] [facility] pressure Medical Center Systolic blood 122 mm[Hg] 122 mm[Hg] [facility] pressure Medical Center Diastolic blood 88 mm[Hg] 88 mm[Hg] [facility] pressure Hospital Systolic blood 138 mm[Hg] 138 mm[Hg] [facility] pressure Hospital Respiratory rate 18 /min 18 /min [facility] Heart rate 111 /min 111 /min [facility] Body temperature 37.36495 37.25497 [facility] Body temperature 98.7 [degF] 98.7 [degF] [facility] Body mass index 43.0 kg/m2 43.0 kg/m2 [facility] (BMI) [Ratio] Hospital Body weight 299.83 299.83 [lb_av] [facility] [lb_av] Hospital Diastolic blood 69 mm[Hg] 69 mm[Hg] [facility] Hospital Systolic blood 111 mm[Hg] 111 mm[Hg] [facility] Hospital Respiratory rate 16 /min 16 /min [facility] Heart rate 73 /min 73 /min [facility] Body temperature 36.40229 36.31364 [facility] Body temperature 98.2 [degF] 98.2 [degF] [facility] Body mass index 43.0 kg/m2 43.0 kg/m2 [facility] (BMI) [Ratio] Hospital Body weight 299.83 299.83 [lb_av] [facility] [lb_av] Hospital Patient Treatment Plan of Care Planned Activity Planned Date Details Description Data Source (s) Ibuprofen 800 MG Oral [facility] Tablet [place] Cephalexin 500 MG Oral [facility] Capsule [place]
[2020-07-28 10:25] LABS: BASO % 0.3 % (0-2.0); EOS % 0.2 % (0-4.5); HEMATOCRIT 45.4 % (35.4-49); HEMOGLOBIN 15.3 GM/dL (11.7-16.9); LYMPH % 21.1 % (8-40); MCHC 33.6 g/dl (32.0-35.9); MEAN CELL VOLUME 86.2 fl (80-96); MEAN PLT VOLUME 9.3 fl (7.5-11.1); MONO % 6.1 % (3.8-10.2); NEUT % 72.3 % (42.8-82.8); PLATELET COUNT 275 K/MM3 (134-434); RBC 5.27 M/mm3 (4.00-5.60); RDW 13.5 % (11.9-15.9); WHITE BLOOD COUNT 11.2 K/mm3 (4.0-10.0)
--- NOTE | 2020-07-28 10:26 | PDOC ---
History of Present Illness - General Chief Complaint: Chest Pain Stated Complaint: CHEST PAIN Time Seen by Provider: 07/28/20 09:16 - History of Present Illness Initial Comments: 07/28/20 10:21 40yo M with history of GERD and an appendectomy presents with left sided chest and LUQ pain radiating to the right back. States he has had this pain before, but it usually goes away after minutes. This time, it began last night as he was lying down in bed playing with his daughter. Was intermittent, and now constant since this morning. Not exertional. Worse with deep breaths and when lying down. Better when sitting up. Denies n/v, SOB, diaphoresis. One episode of non-bloody diarrhea yesterday, and a normal BM this morning. Denies urinary symptoms. Called his GI, who recommended he come to the ER. PMH/PSH: as above Meds: none Allergies: naproxen (hives) ETOH: 1-2 beers per month Tob: denies Drugs: denies ROS GENERAL/CONSTITUTIONAL: No fever or chills. No weakness. HEAD, EYES, EARS, NOSE AND THROAT: No change in vision. No ear pain or discharge. No sore throat. CARDIOVASCULAR: left chest/RUQ/upper right back pain. no shortness of breath RESPIRATORY: No cough, wheezing, or hemoptysis. GASTROINTESTINAL: No nausea, vomiting, diarrhea or constipation. GENITOURINARY: No dysuria, frequency, or change in urination. MUSCULOSKELETAL: No joint or muscle swelling or pain. SKIN: No rash NEUROLOGIC: No headache, vertigo, loss of consciousness, or change in strength/sensation. ENDOCRINE: No increased thirst. No abnormal weight change HEMATOLOGIC/LYMPHATIC: No anemia, easy bleeding, or history of blood clots. ALLERGIC/IMMUNOLOGIC: No hives or skin allergy. PE GENERAL: Awake, alert, and fully oriented, in no acute distress HEAD: No signs of trauma, normocephalic, atraumatic EYES: PERRLA, EOMI, sclera anicteric, conjunctiva clear ENT: Auricles normal inspection, hearing grossly normal, nares patent, oropharynx clear without exudates. Moist mucosa NECK: Normal ROM, supple, no lymphadenopathy, JVD, or masses LUNGS: No distress, speaks full sentences, clear to auscultation bilaterally HEART: Regular rate and rhythm, normal S1 and S2, no murmurs, rubs or gallops, peripheral pulses normal and equal bilaterally. Reproducible right chest pain, as well as right thoracic paraspinal tenderness. ABDOMEN: Soft, RUQ tenderness withouot guarding or rebound. +Burt's EXTREMITIES : Normal inspection, Normal range of motion, no edema. No clubbing or cyanosis. NEUROLOGICAL: Normal speech, normal gait, no focal sensorimotor deficits SKIN: Warm, Dry, normal turgor, no rashes or lesions noted Vital Signs Temp Pulse Resp BP Pulse Ox 98.1 F 78 19 143/99 97 07/28/20 09:06 07/28/20 09:06 07/28/20 09:06 07/28/20 09:06 07/28/20 09:06 MDM: 40yo M with history of GERD and an appendectomy presents with left sided chest and LUQ pain radiating to the right back. Exam concerning for RUQ pathology. DDx includes cholecystitis, ACS, pancreatitis, nephrolithiasis. -EKG -CBC, CMP, lipase, trops, UA/UC -RUQ sono -Pepcid, maalox, tylenol 07/28/20 11:12 EKG: NSR, rate 68, normal axis and intervals, Q wave in III, no ischemic ST-T changes Labs: notable for WBC 11.2 without shift, ALT 65 RUQ: Real time examination of the abdomen demonstrates the following: The study is severely limited due to the patient's size and overlying bowel gas. The gallbladder is not well visualized but appears to be clear of calculi. There is no evidence of intra or extrahepatic biliary duct dilatation. The liver is extremely hyperechoic in texture consistent with extensive diffuse fatty infiltration. No mass lesions are identified within the liver. Hepatopedal flow is documented within the main portal vein. The pancreas cannot be visualized. There is no evidence of hydronephrosis or acute abnormalities of the right kidney. There is no evidence of AAA. IMPRESSION: Severely limited study with extensive diffuse fatty infiltration of the liver. There is no definite evidence of cholelithiasis or acute cholecystitis. Please see above discussion. 07/28/20 17:51 Given negative workup so far, CXR was obtained, and it was negative for acute pathology. Patient reports improvement in pain DC home with PCP and GI f/u Past History - Medical History Allergies/Adverse Reactions: Allergies Allergy/AdvReac Type Severity Reaction Status Date / Time No Known Allergies Allergy Verified 02/25/19 10:03 Home Medications: Ambulatory Orders NK [No Known Home Medication] 02/25/19 COPD: No - Immunization History Immunization Up to Date: Yes - Psycho-Social/Smoking History Smoking History: Never smoked Have you smoked in the past 12 months: No Information on smoking cessation initiated: No - Substance Abuse Hx (Audit-C & DAST Scrn) How often the patient has a drink containing alcohol: Never Score: In Men: 4 or > Positive; In Women: 3 or > Positive: 0 Screen Result (Pos requires Nsg. Audit-10AR): Negative In the last yr the pt used illegal drug/Rx for NonMed reason: No Score: Yes response is considered Positive: 0 Screen Result (Positive result requires Nsg. DAST-10): Negative *Physical Exam - Vital Signs Last Vital Signs Temp Pulse Resp BP Pulse Ox 98.1 F 78 19 143/99 97 07/28/20 09:06 07/28/20 09:06 07/28/20 09:06 07/28/20 09:06 07/28/20 09:06 ED Treatment Course - LABORATORY CBC & Chemistry Diagram: 07/28/20 10:00 07/28/20 10:00 - ADDITIONAL ORDERS Additional order review: Laboratory Results 07/28/20 09:40 Urine Color Yellow Urine Appearance Clear Urine pH 5.5 Ur Specific [place] 1.018 Urine Protein Negative Urine Glucose (UA) Negative Urine Ketones Negative Urine Blood Negative Urine Nitrite Negative Urine Bilirubin Negative Urine Urobilinogen 0.2 Ur Leukocyte Esterase Negative - RADIOLOGY Radiology Studies Ordered: Category Date Time Status ABDOMEN US -LIMITED [US] Stat Ultrasound 07/28/20 09:48 Ordered - Medications Given in the ED: ED Medications Discontinued Medications Generic Name Dose Route Start Last Admin Trade Name Freq PRN Reason Stop Dose Admin Acetaminophen 1,000 mg 07/28/20 09:49 07/28/20 10:06 Ofirmev Injection - IVPB 07/28/20 09:50 1,000 mg ONCE ONE Administration Al Hydroxide/Mg Hydroxide 30 ml 07/28/20 09:49 07/28/20 10:06 Mylanta Oral Suspension - PO 07/28/20 09:50 30 ml ONCE ONE Administration Discharge - Discharge Information Problems reviewed: Yes Clinical Impression/Diagnosis: Chest pain Qualifiers: Chest pain type: unspecified Qualified Code(s): R07.9 - Chest pain, unspecified Abdominal pain Qualifiers: Abdominal location: right upper quadrant Qualified Code(s): R10.11 - Right upper quadrant pain Back pain Qualifiers: Back pain location: thoracic back pain Chronicity: acute Back pain laterality: right Qualified Code(s): M54.6 - Pain in thoracic spine Condition: Improved Disposition: HOME - Admission No - Follow up/Referral Referrals: Austin Mancia DO [Staff Physician] - - Patient Discharge Instructions Additional Instructions: You were seen in the ER for right sided chest/abdomen/back pain. We did a physical exam, EKG, labs, chest x-ray, and abdominal ultrasound, which did not show any emergent problems. The ultrasound did show a fatty liver, and one of your liver enzymes was elevated. This is not the cause of your pain, but please follow up about this with your primary doctor. We gave you medicine which improved but did not completely relieve your pain. Please follow up with your primary doctor and director prospect within three days. You can take tylenol for pain as directed on the label. Please return for severe pain, persistent vomiting, inability to eat, fever, or any other concerning symptoms. - Post Discharge Activity
--- NOTE | 2020-07-28 10:41 | PDOC ---
Documentation entered by Dorothy Wilson SCRIBE, acting as scribe for Rufino Sweet MD. Rufino Sweet MD: This documentation has been prepared by the Steve ruiz Xhesika, SCRIBE, under my direction and personally reviewed by me in its entirety. I confirm that the documentation accurately reflects all work, treatment, procedures, and medical decision making performed by me. Attending Attestation - Resident Resident Name: CherylTrino - ED Attending Attestation I have performed the following: I have examined & evaluated the patient, The case was reviewed & discussed with the resident, I agree w/resident's findings & plan, Exceptions are as noted - HPI HPI: 07/28/20 09:26 The patient is a 40 year old male with no significant PMH of who presents to the emergency department for R sided pain. Pt describes his CP as R sided (pointing to his RUQ and up to his R shoulder), sharp in nature. The pain started suddenly last night, lasts for a few minutes at a time, then resolves, but since this AM has been more constant. He endorses mild nausea ith the pain but denies any vomiting, fever/chills, sob/crisostomo. He had this pain once several months ago, also in the evening, but resolved and never recurred until last night. pt has hx of acid reflux and takes meds for it and this feels differently. No exertional sx. The patient denies shortness of breath, headache and dizziness. Denies fever, chills, cough, vomiting, diarrhea and constipation. Allergies: NKDA - Physicial Exam PE: 07/28/20 10:13 GENERAL: The patient is awake, alert, and fully oriented, Nontoxic - in no acute distress. HEAD: Normocephalic, atraumatic. EYES: extraocular movements intact, sclera anicteric, conjunctiva clear. ENT: Normal voice, Moist mucous membranes. NECK: Normal range of motion, supple LUNGS: Breath sounds equal, clear to auscultation bilaterally. No wheezes, no rhonchi, no rales. HEART: Regular rate and rhythm, normal S1 and S2 without murmur, rub or gallop. ABDOMEN: Soft, mild RUQ tenderness, +murphies, No guarding, no rebound. No CVA tenderness EXTREMITIES: Normal range of motion, no edema. NEUROLOGICAL: No facial assymetry, Normal speech, PSYCH: Normal mood, normal affect. SKIN: Warm, Dry, normal turgor, - Medical Decision Making 07/28/20 09:51 40y M presents with sudden onset of RUQ/R sided abdominal pain last night that i s waxing and waning associated with nausea, and pt has RUQ tenderness suspect gall stones, consider panceratitis, gastirits, kidney stones will obtain labs, RUQ US, UA will give analgesia essence givens Heart Score/ECG Review - ECG Impressions Comment:: 07/28/20 10:41 Twelve-lead EKG was performed and reviewed by me. There is normal sinus rhythm with a normal rate. rateof 68 The axis is normal. The intervals are normal. There is normal R wave progression There are no ST or T wave abnormalities. Impression: Normal twelve-lead EKG Discharge - Discharge Information Problems reviewed: Yes Clinical Impression/Diagnosis: Chest pain Qualifiers: Chest pain type: unspecified Qualified Code(s): R07.9 - Chest pain, unspecified Abdominal pain Qualifiers: Abdominal location: right upper quadrant Qualified Code(s): R10.11 - Right upper quadrant pain Back pain Qualifiers: Back pain location: thoracic back pain Chronicity: acute Back pain laterality: right Qualified Code(s): M54.6 - Pain in thoracic spine Disposition: HOME - Admission No - Follow up/Referral Referrals: Austin Mancia DO [Staff Physician] - - Patient Discharge Instructions Additional Instructions: You were seen in the ER for right sided chest/abdomen/back pain. We did a physical exam, EKG, labs, chest x-ray, and abdominal ultrasound, which did not show any emergent problems. The ultrasound did show a fatty liver, and one of your liver enzymes was elevated. This is not the cause of your pain, but please follow up about this with your primary doctor. We gave you medicine which improved but did not completely relieve your pain. Please follow up with your primary doctor and surgical first assistant within three days. You can take tylenol for pain as directed on the label. Please return for severe pain, persistent vomiting, inability to eat, fever, or any other concerning symptoms. - Post Discharge Activity
[2020-07-28 10:53] LABS: ALBUMIN 4.1 g/dl (3.4-5.0); ALK PHOS 63 U/L (45-117); ANION GAP 7 MMOL/L (8-16); BILIRUBIN,TOTAL 0.6 mg/dL (0.2-1); BLOOD UREA NITROGEN 15.7 mg/dL (7-18); CALCIUM 9.4 mg/dL (8.5-10.1); CHLORIDE 106 mmol/L (98-107); CO2 25 mmol/L (21-32); CREATININE 0.9 mg/dL (0.55-1.3); GLUCOSE,RANDOM 92 mg/dL (74-106); LIPASE 159 U/L (73-393); POTASSIUM 4.5 mmol/L (3.5-5.1); SGOT/AST 26 U/L (15-37); SGPT/ALT 65 U/L (13-61); SODIUM 138 mmol/L (136-145); TOT PROT 8.1 g/dl (6.4-8.2)
[2020-07-28] MEDS ORDERED: KETOROLAC TROMETHAMINE 15 MG/ML VIAL IVPUSH ONE (12:29)
[2020-07-28] MEDS ORDERED: KETOROLAC TROMETHAMINE 15 MG/ML VIAL ONE (13:02)
[2020-07-28 16:11] VITALS: BP 150/79; PULSE 79; TEMP 98.4
--- NOTE | 2020-07-29 11:00 | EKG ---
Test Reason : Blood Pressure : / mmHG Vent. Rate : 068 BPM Atrial Rate : 068 BPM P-R Int : 146 ms QRS Dur : 104 ms QT Int : 392 ms P-R-T Axes : 062 049 041 degrees QTc Int : 416 ms NORMAL SINUS RHYTHM POSSIBLE LEFT ATRIAL ENLARGEMENT BORDERLINE ECG WHEN COMPARED WITH ECG OF 30-MAY-2000 04:05, NO SIGNIFICANT CHANGE WAS FOUND Confirmed by MD Harvey Edward ([id number]) on 07/29/2020 11:00:34 AM Referred By: Confirmed By:Abel Harvey MD
== END 2020-07-28 15:55 | disposition home or self-care (01) ==
LOC: JER 09:01
PROC: 3E0333Z Introduction of Anti-inflammatory into Peripheral Vein, Percutaneous Approach (ICD-10-PCS; principal; 2020-07-28)
PROC: 3E033GC Introduction of Other Therapeutic Substance into Peripheral Vein, Percutaneous Approach (ICD-10-PCS; 2020-07-28)
DX: R10.11 Right upper quadrant pain (principal); R07.9 Chest pain, unspecified; M54.6 Pain in thoracic spine
CPT/HCPCS: 36415; 71046-TC-FY; 76705-TC; 80053; 81003; 83690; 84484; 85025; 87086; 93005; 93010; 96374; 96375; 99285-25; J0131

== ENCOUNTER 2020-08-03 11:19 | Emergency (ER) | payer OTHER ==
[2020-08-03 11:31] VITALS: BMI 39.4
--- OUTSIDE RECORDS SUMMARY | 2020-08-03 12:00 | XMS ---
:1980 Author Organization [facility] Care Team Providers Name Role Phone Merrill [...] is protected by Article 27-F of the [place] State Public Health law. If you continue you may haveaccess to information: Regarding HIV / AIDS; Provided by facilities licensed or operated by the [facility] Office of Mental Health; or Provided by the [facility] Office for People With Developmental Disabilities. If such information is present, then the following [facility] mandated warning applies: This information has [...] law may result in a fine or [place] health [place] sentence or both. A general authorization for the release of medical or other information is NOT sufficient authorization for further disclosure. 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 Observation Data S ource(s) Description Advance No completed [facility] Advance No completed [facility] Allergies and Adverse Reactions Type Description Substance Reaction Status Data Source(s ) Drug allergy No Known Drug No Known Drug NO KNOWN ALLERG [facility] Food allergy No Known Food No Known Food [facility] Drug allergy No Known Drug No Known Drug [facility] Encounters Encounter Providers Location Date Indications Data Source(s ) Emergency Attender: STAFF ED H 05/05/2020 [facility] STAFF PHYSICIAN 09:01:00 PM EDT [facility] - 05/05/2020 11:28:00 PM EDT Patient discharged. [...] Source(s) Tdap 05/05/2020 10:47:00 PM EDT completed [facility] Medications Medication Brand Start Product Dose Route Administrative Pharmacy [facility] Indications Reaction Description Data Name Date Form Instructions Instructions Source(s) Sumatriptan Sumatr 03/25/ TABLET 25 mg ORAL complet [facility] 25 MG Oral iptan 2016 [facility] [place] Tablet Succin 07:59: Hospital [Imitrex] ate 00 PM Sumatriptan EDT Succinate Methocarbam Methoc 05/27/ TABLET 1500 ORAL complet [facility] 750 MG arbamo 2017 mg ed [place] Oral Tablet l 07:59: Hospit al [Robaxin] 00 PM EDT Sumatriptan Sumatr 05/27/ TABLET 25 mg ORAL complet [facility] 25 MG Oral iptan 2017 ed [place] Tablet Succin 07:59: Hospital [Imitrex] ate 00 PM Sumatriptan EDT Succinate Methocarbam Methoc 05/27/ TABLET 1500 ORAL complet [facility] 750 MG arbamo 2017 mg ed [place] Oral Tablet l 07:59: Hospit al [Robaxin] 00 PM EDT doxycycline Doxycy 05/12/ CAPSULE, 100 ORAL complet White hyclate 100 nieves 2014 DELAYED [facility] MG Oral Hyclat 02:49: RELEASE [facility]pi [facility] Capsule e 00 PM [Vibramycin EDT ] Doxycycline Hyclate doxycycline Doxycy 05/12/ CAPSULE, 100 ORAL complet [facility] hyclate 100 nieves 2014 DELAYED [facility] MG Oral Hyclat 02:49: RELEASE [facility] Capsule e 00 PM [Vibramycin EDT ] Doxycycline Hyclate Amoxicillin Amoxic 05/12/ TABLET 875 ORAL complet [facility] 875 MG / illin/ 2014 mg ed [place] Clavulanate Clavun 02:49: Hosp ital 125 MG Oral ate 00 PM Tablet 875-12 EDT Amoxicillin 5 /Clavunate Tablet 875-125 * Tablet* Amoxicillin Amoxic 05/12/ TABLET 875 ORAL complet [facility] 875 MG / illin/ 2014 mg ed [place] Clavulanate Clavun 02:49: Hosp ital 125 MG Oral ate 00 PM Tablet 875-12 EDT Amoxicillin 5 /Clavunate Tablet 875-125 * Tablet* Cephalexin Cephal 05/03/ CAPSULE 500 ORAL complet [facility] 500 MG Oral exin 2014 mg ed [place] Capsule Monohy 07:49: Hospital Cephalexin drate 00 AM Monohydrate EDT Cephalexin Cephal 05/03/ CAPSULE 500 ORAL complet [facility] 500 MG Oral exin 2014 mg ed [place] Capsule Monohy 07:49: Hospital Cephalexin drate 00 AM Monohydrate EDT Ibuprofen ibupro 1 complet [facility] 800 MG Oral fen ed Liliane Tablet 800 mg Medical ibuprofen Tablet Center 800 mg , Tablet, Ordere Ordered By: d By: Leydi Leydi Green, Green, PADirection PADire s: 1 tablet ctions oral [...] UNSPECIF 1 complet [facility] [place] [facility] None UNSPECIF 1 complet [facility] [place] [facility] Insurance Providers Payer name Policy type Policy ID Covered Covered democrat's Policy P ivett / Coverage democrat ID relationship to Romano Inf ormation type romano BERENICE [id number] SP [id number] 000 [facility] NON [facility] CARE [id number] 1 [id number] [facility] WELLCARE OF [id number] SP [id number] [employer] [facility] O [facility] [id number] PT [id number] M MEDICAID [id number] PT [id number] [facility] [id number] PT [id number] A Problems, Conditions, and Diagnoses Code Display Name Description Problem Type Effective Dates Data Source(s) Y99.9 Unspecified UNSPECIFIED Diagnosis 05/05/2020 [facility] external cause EXTERNAL CAUSE 09:01:00 PM EDT [facility] status STATUS Y92.[address] IN Diagnosis 05/05/2020 Jarek Momin in unspecified UNSP NON-INSTITUT 09:01:00 PM ED T [facility] non-institutional (PRIVATE) (private) RESIDENCE residence as the PLACE place of occurrence of the external cause Y93.9 Activity, ACTIVITY, Diagnosis 05/05/2020 [facility] unspecified UNSPECIFIED 09:01:00 PM EDT Medical Center W13.0XXA Fall from, out of FALL FROM, OUT OF Diagnosis 05/05/2020 [facility] or through OR THROUGH 09:01:00 PM EDT Medical C enter balpro, initial [place], INITIAL encounter ENCOUNTER S80.11XA Contusion of CONTUSION OF Diagnosis 05/05/2020 [facility] right lower leg, RIGHT LOWER LEG, 09:01:00 PM E Medical Center initial encounter INITIAL ENCOUNTER S80.811A Abrasion, right ABRASION, RIGHT Diagnosis 05/05/2020 Jarek Momin lower leg, LOWER LEG, 09:01:00 PM EDT Medical C enter initial encounter INITIAL ENCOUNTER M79.606 Pain in leg, PAIN IN LEG, Diagnosis 05/05/2020 [facility] unspecified UNSPECIFIED 09:01:00 PM EDT Medical Center R31.9 Hematuria, R31.9 Diagnosis 10/07/2019 [place] unspecified 07:49:00 PM EST Hospital N50.811 Right testicular N50.811 Diagnosis 10/07/2019 [facility] pain 07:49:00 PM EST Hospital N50.812 Left testicular N50.812 Diagnosis 10/07/2019 [facility] pain 07:49:00 PM EST Hospital R10.9 Unspecified R10.9 Diagnosis 09/30/2019 [place] [facility] abdominal pain 12:06:00 PM EST [facility]pi [facility] Surgeries/Procedures Procedure Description Date Indications Data Source(s) Echography of scrotum 10/07/2019 [facility] and contents (procedure) 12:00:00 AM EST Computed tomography of 09/30/2019 [facility] abdomen and pelvis with 12:00:00 AM EST intravenous and oral contrast NORMAL SALINE SOLUTION 09/30/2019 [facility] INFUS 12:00:00 AM EST LOCM 200-299MG/ML 09/30/2019 [facility] IODINE,1ML 12:00:00 AM EST LOW OSMOLAR 300-399 09/30/2019 [facility] mg/mi IOP 12:00:[address] abd & pelv w/contrast 09/30/2019 [facility] 12:00:00 AM EST Assay of lipase 09/30/2019 [facility] 12:00:00 AM EST Comprehen metabolic 09/30/2019 [facility] panel 12:00:00 AM EST Complete cbc w/auto diff 09/30/2019 [facility] wbc 12:00:00 AM EST Urinalysis auto w/o 09/30/2019 [facility] scope 12:00:00 AM EST Emergency dept visit 09/30/2019 [facility] 12:00:00 AM EST Computed tomography of 09/30/2019 [facility] abdomen and pelvis with 12:00:00 AM EST intravenous and oral contrast Results ID Date Data Source [id number] 07/20/2020 12:00:00 AM EDT [facility] Name Value Range Interpretation Code Description Data Ankita rce(s) Supporting Document(s ) SARS-CoV-2 [facility] This lab was ordered by DR.TIMOTHY CARSON and reported by [employer]. ID Date Data Source [id number] 01/31/2020 09:26:00 PM EDT [facility] Name Value Range Interpretation Code Description Data Ankita rce(s) Supporting Document(s ) SARS-COV-2 [facility] PCR This lab was ordered by [facility] and reported by [facility]. ID Date Data Source [id number] 01/13/2020 09:48:00 PM EDT [facility] Name Value Range Interpretation Code Description Data Ankita rce(s) Supporting Document(s ) 2019-NCOV [facility] RNA PNL XXX ELTON+PROBE This lab was ordered by [facility] Chem [address] and reported by [facility]. ID Date Data Source [id number] 10/07/2019 08:47:00 PM EST [facility] Name Value Range Interpretation Description Data Sup porting Code Source(s) Document(s ) Hemoglobin.g NEGATIVE [facility] nal [Presence] in Stool --1st specimen ID Date Data Source [id number] 10/07/2019 08:38:00 PM [facility] Name Value Range Interpretation Description Data Sup porting Code Source(s) Document(s ) Leukocyte NEGATIVE [facility] [Presence] in Urine by Test strip ID Date Data Source [id number] 10/07/2019 08:38:00 PM EST [facility] Name Value Range Interpretation Description Data Sup porting Code Source(s) Document(s ) URINE NEGATIVE [facility] ID Date Data Source [id number] 10/07/2019 08:38:00 PM EST [facility] Name Value Range Interpretation Description Data Sup porting Code Source(s) Document(s ) Erythrocytes NEGATIVE [place] [#/volume] in Hospital Urine by Test strip ID Date Data Source [id number] 10/07/2019 08:38:00 PM EST [facility] Name Value Range Interpretation Code Description Data Ankita rce(s) Supporting Document(s ) Bilirubin. NEGATIVE [facility] total Hospital [Presence] in Urine by Test strip ID Date Data Source [id number] 10/07/2019 08:38:00 PM EST [facility] Name Value Range Interpretation Description Data Sup porting Code Source(s) Document(s ) Urobilinogen 1.0 [facility] [Units/volume] mg/dL Hospital in Urine by Test strip ID Date Data Source [id number] 10/07/2019 08:38:00 PM [facility] Name Value Range Interpretation Description Data Sup porting Code Source(s) Document(s ) Ketones NEGATIVE [facility] [Mass/volume Hospital ] in Urine by Test strip ID Date Data Source [id number] 10/07/2019 08:38:00 PM [facility] Name Value Range Interpretation Description Data Sup porting Code Source(s) Document(s ) Glucose NEGATIVE [place] [facility] [Mass/volume Hospital ] in Urine by Test strip ID Date Data Source [id number] 10/07/2019 08:38:00 PM [facility] Name Value Range Interpretation Description Data Sup porting Code Source(s) Document(s ) Protein NEGATIVE [place] [facility] [Presence] Hospital in Urine by Test strip ID Date Data Source [id number] 10/07/2019 08:38:00 PM [facility] Value Range Interpretation Code Description Data Ankita rce(s) Supporting Document(s ) pH of Urine 5.5 [place] by Test Hospital strip ID Date Data Source [id number] 10/07/2019 08:38:00 PM [facility] Name Value Range Interpretation Code Description Data Supporting Source(s) Document(s ) Specific 1.029 [facility] gravity of Hospital Urine by Test strip ID Date Data Source [id number] 10/07/2019 08:38:00 PM [facility] Value Range Interpretation Description Data Sup porting Code Source(s) Document(s ) Clarity in Urine CLEAR [place] [facility] by Refractometry Hospital automated ID Date Data Source [id number] 10/07/2019 08:38:00 PM [facility] Value Range Interpretation Code Description Data Ankita rce(s) Supporting Document(s ) Color of YELLOW [facility] Urine Hospital ID Date Data Source [id number] 10/07/2019 07:45:00 PM [facility] Name Value Range Interpretation Description Data Sup porting Code Source(s) Document(s ) Aspartate 54 U/L [facility] aminotransferase [place] [Enzymatic Hospital activity/volume] in Serum or Plasma ID Date Data Source [id number] 10/07/2019 07:45:00 PM [facility] Value Range Interpretation Description Data Sup porting Code Source(s) Document(s ) Alanine 89 U/L [facility] aminotransferase [place] [Enzymatic Hospital activity/volume] in Serum or Plasma ID Date Data Source [id number] 10/07/2019 07:45:00 PM [facility] Name Value Range Interpretation Description Data Sup porting Code Source(s) Document(s ) Alkaline 70 U/L [facility] phosphatase Hospital [Enzymatic activity/volume ] in Serum or Plasma ID Date Data Source [id number] 10/07/2019 07:45:00 PM [facility] Value Range Interpretation Description Data Sup porting Code Source(s) Document(s ) Bilirubin.t 0.6 mg/dL [facility] [Mass/volum e] in Serum or Plasma ID Date Data Source [id number] 10/07/2019 07:45:00 PM EST [facility] Name Value Range Interpretation Code Description Data Ankita rce(s) Supporting Document(s ) Albumin/Glob 1.8 [facility] ulin [Mass Hospital Ratio] in Serum or Plasma ID Date Data Source [id number] 10/07/2019 07:45:00 PM EST [facility] Name Value Range Interpretation Description Data Sup porting Code Source(s) Document(s ) Albumin 4.8 g/dL [facility] [Mass/volume Hospital ] in Serum or Plasma ID Date Data Source [id number] 10/07/2019 07:45:00 PM EST [facility] Name Value Range Interpretation Description Data Sup porting Code Source(s) Document(s ) Protein 7.5 g/dL [facility] [Mass/volume Hospital ] in Serum or Plasma ID Date Data Source [id number] 10/07/2019 07:45:00 PM EST [facility] Name Value Range Interpretation Description Data Sup porting Code Source(s) Document(s ) Calcium 9.5 mg/dL [facility] [Mass/volume Hospital ] in Serum or Plasma ID Date Data Source [id number] 10/07/2019 07:45:00 PM EST [facility] Name Value Range Interpretation Code Description Data Ankita rce(s) Supporting Document(s ) Urea 23.8 [facility] nitrogen/Cre Hospital atinine [Mass Ratio] in Serum or Plasma ID Date Data Source [id number] 10/07/2019 07:45:00 PM EST [facility] Name Value Range Interpretation Description Data Sup porting Code Source(s) Document(s ) Creatinine 0.8 mg/dL [facility] [Mass/volume] Hospital in Serum or Plasma ID Date Data Source [id number] 10/07/2019 07:45:00 PM EST [facility] Name Value Range Interpretation Description Data Sup porting Code Source(s) Document(s ) Urea 19 mg/dL [facility] nitrogen Hospital [Mass/volume ] in Serum or Plasma ID Date Data Source [id number] 10/07/2019 07:45:00 PM EST [facility] Name Value Range Interpretation Code Description Data Ankita rce(s) Supporting Document(s ) Anion gap in 10 [place] [facility] Serum or [facility] Plasma ID Date Data Source [id number] 10/07/2019 07:45:00 PM [facility] Name Value Range Interpretation Description Data Sup porting Code Source(s) Document(s ) Carbon 31 mmol/L [facility] dioxide, Hospital total [Moles/volu me] in Serum or Plasma ID Date Data Source [id number] 10/07/2019 07:45:00 PM EST [facility] Name Value Range Interpretation Description Data Sup porting Code Source(s) Document(s ) Chloride 100 [facility] [Moles/volum mmol/L Hospital e] in Serum or Plasma ID Date Data Source [id number] 10/07/2019 07:45:00 PM EST [facility] Name Value Range Interpretation Description Data Sup porting Code Source(s) Document(s ) Potassium 4.1 [facility] [Moles/volume mmol/L Hospital ] in Serum or Plasma ID Date Data Source [id number] 10/07/2019 07:45:00 PM EST [facility] Name Value Range Interpretation Description Data Sup porting Code Source(s) Document(s ) Sodium 137 mmol/L [facility] [Moles/volu Hospital me] in Serum or Plasma ID Date Data Source [id number] 10/07/2019 07:45:00 PM EST [facility] Name Value Range Interpretation Description Data Sup porting Code Source(s) Document(s ) Glucose 102 mg/dL [facility] [Mass/volume Hospital ] in Serum or Plasma ID Date Data Source [id number] 10/07/2019 07:45:00 PM [facility] Value Range Interpretation Code Description Data Supporting Source(s) Document(s ) NUCLEATED RBCS 0.0 % [facility] (AUTO Hospital DIFF%)DIS ID Date Data Source [id number] 10/07/2019 07:45:00 PM [facility] Value Range Interpretation Description Data Sup porting Code Source(s) Document(s ) Differential AUTOMATED [place] cell count [facility] method - Blood ID Date Data Source [id number] 10/07/2019 07:45:00 PM [facility] Value Range Interpretation Description Data Sup porting Code Source(s) Document(s ) Immature 0.03 [facility] granulocytes 10*3/uL Hospital [#/volume] in Blood by Automated count ID Date Data Source [id number] 10/07/2019 07:45:00 PM EST [facility] Value Range Interpretation Description Data Sup porting Code Source(s) Document(s ) Basophils 0.03 [facility] [#/volume] in 10*3/uL Hospital Blood by Automated count ID Date Data Source [id number] 10/07/2019 07:45:00 PM [facility] Name Value Range Interpretation Description Data Sup porting Code Source(s) Document(s ) Eosinophils 0.06 [facility] [#/volume] in 10*3/uL Hospital Blood by Automated count ID Date Data Source [id number] 10/07/2019 07:45:00 PM [facility] Name Value Range Interpretation Description Data Sup porting Code Source(s) Document(s ) Monocytes 0.52 [facility] [#/volume] in 10*3/uL Hospital Blood by Automated count ID Date Data Source [id number] 10/07/2019 07:45:00 PM EST [facility] Name Value Range Interpretation Description Data Sup porting Code Source(s) Document(s ) Lymphocytes 2.02 [facility] [#/volume] in 10*3/uL Hospital Blood by Automated count ID Date Data Source [id number] 10/07/2019 07:45:00 PM EST [facility] Value Range Interpretation Description Data Sup porting Code Source(s) Document(s ) Neutrophils 4.57 [facility] [#/volume] in 10*3/uL [facility] Blood by Automated count ID Date Data Source [id number] 10/07/2019 07:45:00 PM [facility] Value Range Interpretation Description Data Sup porting Code Source(s) Document(s ) Nucleated 0.0 % [facility] erythrocytes/10 Hospital 0 leukocytes [Ratio] in Blood by Automated count ID Date Data Source [id number] 10/07/2019 07:45:00 PM [facility] Value Range Interpretation Description Data Sup porting Code Source(s) Document(s ) Immature 0.4 % [facility] granulocytes/10 Hospital 0 leukocytes in Blood by Automated count ID Date Data Source [id number] 10/07/2019 07:45:00 PM [facility] Name Value Range Interpretation Description Data Sup porting Code Source(s) Document(s ) Basophils/100 0.4 % [facility] leukocytes in Hospital Blood by Automated count ID Date Data Source [id number] 10/07/2019 07:45:00 PM [facility] Value Range Interpretation Description Data Sup porting Code Source(s) Document(s ) Eosinophils/100 0.8 % [facility] leukocytes in Hospital Blood by Automated count ID Date Data Source [id number] 10/07/2019 07:45:00 PM EST [facility] Name Value Range Interpretation Description Data Sup porting Code Source(s) Document(s ) Monocytes/100 7.2 % [facility] leukocytes in Hospital Blood by Automated count ID Date Data Source [id number] 10/07/2019 07:45:00 PM EST [facility] Name Value Range Interpretation Description Data Sup porting Code Source(s) Document(s ) Lymphocytes/10 27.9 % [facility] 0 leukocytes Hospital in Blood by Automated count ID Date Data Source [id number] 10/07/2019 07:45:00 PM EST [facility] Value Range Interpretation Description Data Sup porting Code Source(s) Document(s ) Neutrophils/10 63.3 % [facility] 0 leukocytes Hospital in Blood by Automated count ID Date Data Source [id number] 10/07/2019 07:45:00 PM EST [facility] Name Value Range Interpretation Description Data Sup porting Code Source(s) Document(s ) Platelet mean 10.7 fL [facility] volume Hospital [Entitic volume] in Blood by Automated count ID Date Data Source [id number] 10/07/2019 07:45:00 PM EST [facility] Name Value Range Interpretation Description Data Sup porting Code Source(s) Document(s ) Platelets 235 [place] [#/volume] in 10*3/uL Hospital Blood by Automated count ID Date Data Source [id number] 10/07/2019 07:45:00 PM EST [facility] Name Value Range Interpretation Description Data Sup porting Code Source(s) Document(s ) Erythrocyte 12.6 % [facility] distribution Hospital width [Ratio] by Automated count ID Date Data Source [id number] 10/07/2019 07:45:00 PM [facility] Name Value Range Interpretation Description Data Sup porting Code Source(s) Document(s ) Erythrocyte mean 34.2 [place] [facility] corpuscular g/dL Hospital hemoglobin concentration [Mass/volume] by Automated count ID Date Data Source [id number] 10/07/2019 07:45:00 PM [facility] Value Range Interpretation Description Data Sup porting Code Source(s) Document(s ) Erythrocyte 29.[address] [facility] corpuscular hemoglobin [Entitic mass] by Automated count ID Date Data Source [id number] 10/07/2019 07:45:00 PM [facility] Value Range Interpretation Description Data Sup porting Code Source(s) Document(s ) Erythrocyte 85.[address] [facility] corpuscular volume [Entitic volume] by Automated count ID Date Data Source [id number] 10/07/2019 07:45:00 PM [facility] Value Range Interpretation Description Data Sup porting Code Source(s) Document(s ) Hematocrit 46.5 % [facility] [Volume Hospital Fraction] of Blood by Automated count ID Date Data Source [id number] 10/07/2019 07:45:00 PM [facility] Value Range Interpretation Description Data Sup porting Code Source(s) Document(s ) Hemoglobin 15.9 g/dL [facility] [Mass/volume] Hospital in Blood ID Date Data Source [id number] 10/07/2019 07:45:00 PM [facility] Value Range Interpretation Description Data Sup porting Code Source(s) Document(s ) Erythrocytes 5.45 [facility] [#/volume] in 10*6/uL Hospital Blood by Automated count ID Date Data Source [id number] 10/07/2019 07:45:00 PM [facility] Name Value Range Interpretation Description Data Sup porting Code Source(s) Document(s ) Leukocytes 7.2 [facility] [#/volume] in 10*3/uL Hospital Blood by Automated count ID Date Data Source [id number] 09/30/2019 01:20:00 PM [facility] Name Value Range Interpretation Description Data Sup porting Code Source(s) Document(s ) Leukocyte NEGATIVE [facility] esterase Hospital [Presence] in Urine by Test strip ID Date Data Source [id number] 09/30/2019 01:20:00 PM [facility] Value Range Interpretation Description Data Sup porting Code Source(s) Document(s ) URINE NEGATIVE [place] NITRITES Hospital ID Date Data Source [id number] 09/30/2019 01:20:00 PM [facility] Name Value Range Interpretation Description Data Sup porting Code Source(s) Document(s ) Erythrocytes NEGATIVE [place] [#/volume] in Hospital Urine by Test strip ID Date Data Source [id number] 09/30/2019 01:20:00 PM [facility] Name Value Range Interpretation Code Description Data Ankita rce(s) Supporting Document(s ) Bilirubin. NEGATIVE [facility] total Hospital [Presence] in Urine by Test strip ID Date Data Source [id number] 09/30/2019 01:20:00 PM [facility] Name Value Range Interpretation Description Data Sup porting Code Source(s) Document(s ) Urobilinogen 0.2 [facility] [Units/volume] mg/dL Hospital in Urine by Test strip ID Date Data Source [id number] 09/30/2019 01:20:00 PM [facility] Name Value Range Interpretation Description Data Sup porting Code Source(s) Document(s ) Ketones NEGATIVE [place] [facility] [Mass/volume Hospital ] in Urine by Test strip ID Date Data Source [id number] 09/30/2019 01:20:00 PM EST [facility] Name Value Range Interpretation Description Data Sup porting Code Source(s) Document(s ) Glucose NEGATIVE [place] [facility] [Mass/volume Hospital ] in Urine by Test strip ID Date Data Source [id number] 09/30/2019 01:20:00 PM EST [facility] Name Value Range Interpretation Description Data Sup porting Code Source(s) Document(s ) Protein NEGATIVE [facility] [Presence] Hospital in Urine by Test strip ID Date Data Source [id number] 09/30/2019 01:20:00 PM EST [facility] Name Value Range Interpretation Code Description Data Ankita rce(s) Supporting Document(s ) pH of Urine 5.5 [place] by Test Hospital strip ID Date Data Source [id number] 09/30/2019 01:20:00 PM EST [facility] Name Value Range Interpretation Code Description Data Supporting Source(s) Document(s ) Specific 1.015 [facility] gravity of Hospital Urine by Test strip ID Date Data Source [id number] 09/30/2019 01:20:00 PM EST [facility] Name Value Range Interpretation Description Data Sup porting Code Source(s) Document(s ) Clarity in Urine CLEAR [place] [facility] by Refractometry Hospital automated ID Date Data Source [id number] 09/30/2019 01:20:00 PM EST [facility] Name Value Range Interpretation Code Description Data Ankita rce(s) Supporting Document(s ) Color of YELLOW [facility] Urine Hospital ID Date Data Source [id number] 09/30/2019 12:12:00 PM EST [facility] Name Value Range Interpretation Code Description Data Ankita rce(s) Supporting Document(s ) Lipase 42 U/L [facility] [Enzymatic Hospital activity/vo lume] in Serum or Plasma ID Date Data Source [id number] 09/30/2019 12:12:00 PM EST [facility] Name Value Range Interpretation Code Description Data Ankita rce(s) Supporting Document(s ) Lipase 42 U/L [facility] [Enzymatic Hospital activity/vo lume] in Serum or Plasma ID Date Data Source [id number] 09/30/2019 12:12:00 PM EST [facility] Name Value Range Interpretation Description Data Sup porting Code Source(s) Document(s ) Aspartate 37 U/L [facility] aminotransferase [place] [Enzymatic Hospital activity/volume] in Serum or Plasma ID Date Data Source [id number] 09/30/2019 12:12:00 PM [facility] Name Value Range Interpretation Description Data Sup porting Code Source(s) Document(s ) Alanine 51 U/L [facility] amin[facility] [place] [Enzymatic Hospital activity/volume] in Serum or Plasma ID Date Data Source [id number] 09/30/2019 12:12:00 PM [facility] Name Value Range Interpretation Description Data Sup porting Code Source(s) Document(s ) Alkaline 63 U/L [facility] phosphatase Hospital [Enzymatic activity/volume ] in Serum or Plasma ID Date Data Source [id number] 09/30/2019 12:12:00 PM [facility] Name Value Range Interpretation Description Data Sup porting Code Source(s) Document(s ) Bilirubin.t 0.4 mg/dL [facility] [Mass/volum e] in Serum or Plasma ID Date Data Source [id number] 09/30/2019 12:12:00 PM [facility] Name Value Range Interpretation Code Description Data Ankita rce(s) Supporting Document(s ) Albumin/Glob 2.0 [place] ulin [Mass Hospital Ratio] in Serum or Plasma ID Date Data Source [id number] 09/30/2019 12:12:00 PM [facility] Name Value Range Interpretation Description Data Sup porting Code Source(s) Document(s ) Albumin 4.7 g/dL [place] [facility] [Mass/volume Hospital ] in Serum or Plasma ID Date Data Source [id number] 09/30/2019 12:12:00 PM [facility] Name Value Range Interpretation Description Data Sup porting Code Source(s) Document(s ) Protein 7.1 g/dL [place] [Mass/volume Hospital ] in Serum or Plasma ID Date Data Source [id number] 09/30/2019 12:12:00 PM [facility] Name Value Range Interpretation Description Data Sup porting Code Source(s) Document(s ) Calcium 9.3 mg/dL [facility] [Mass/volume Hospital ] in Serum or Plasma ID Date Data Source [id number] 09/30/2019 12:12:00 PM [facility] Name Value Range Interpretation Code Description Data Ankita rce(s) Supporting Document(s ) Urea 20.0 [facility] nitrogen/Cre Hospital atinine [Mass Ratio] in Serum or Plasma ID Date Data Source [id number] 09/30/2019 12:12:00 PM [facility] Name Value Range Interpretation Description Data Sup porting Code Source(s) Document(s ) Creatinine 0.8 mg/dL [place] [facility] [Mass/volume] Hospital in Serum or Plasma ID Date Data Source [id number] 09/30/2019 12:12:00 PM [facility] Name Value Range Interpretation Description Data Sup porting Code Source(s) Document(s ) Urea 16 mg/dL [facility] nitrogen Hospital [Mass/volume ] in Serum or Plasma ID Date Data Source [id number] 09/30/2019 12:12:00 PM EST [facility] Name Value Range Interpretation Code Description Data Ankita rce(s) Supporting Document(s ) Anion gap in 10 [facility] Serum or Hospital Plasma ID Date Data Source [id number] 09/30/2019 12:12:00 PM EST [facility] Name Value Range Interpretation Description Data Sup porting Code Source(s) Document(s ) Carbon 28 mmol/L [facility] dioxide, Hospital total [Moles/volu me] in Serum or Plasma ID Date Data Source [id number] 09/30/2019 12:12:00 PM EST [facility] Name Value Range Interpretation Description Data Sup porting Code Source(s) Document(s ) Chloride 104 [facility] [Moles/volum mmol/L Hospital e] in Serum or Plasma ID Date Data Source [id number] 09/30/2019 12:12:00 PM EST [facility] Name Value Range Interpretation Description Data Sup porting Code Source(s) Document(s ) Potassium 4.3 [facility] [Moles/volume mmol/L Hospital ] in Serum or Plasma ID Date Data Source [id number] 09/30/2019 12:12:00 PM EST [facility] Name Value Range Interpretation Description Data Sup porting Code Source(s) Document(s ) Sodium 138 mmol/L [facility] [Moles/volu Hospital me] in Serum or Plasma ID Date Data Source [id number] 09/30/2019 12:12:00 PM EST [facility] Name Value Range Interpretation Description Data Sup porting Code Source(s) Document(s ) Glucose 129 mg/dL [facility] [Mass/volume Hospital ] in Serum or Plasma ID Date Data Source [id number] 09/30/2019 12:12:00 PM [facility] Name Value Range Interpretation Code Description Data Supporting Source(s) Document(s ) NUCLEATED RBCS 0.0 % [facility] (AUTO Hospital DIFF%)DIS ID Date Data Source [id number] 09/30/2019 12:12:00 PM [facility] Name Value Range Interpretation Description Data Sup porting Code Source(s) Document(s ) Differential AUTOMATED [place] cell count [facility] method - Blood ID Date Data Source [id number] 09/30/2019 12:12:00 PM [facility] Name Value Range Interpretation Description Data Sup porting Code Source(s) Document(s ) Immature 0.01 [facility] granulocytes 10*3/uL Hospital [#/volume] in Blood by Automated count ID Date Data Source [id number] 09/30/2019 12:12:00 PM [facility] Name Value Range Interpretation Description Data Sup porting Code Source(s) Document(s ) Basophils 0.02 [facility] [#/volume] in 10*3/uL Hospital Blood by Automated count ID Date Data Source [id number] 09/30/2019 12:12:00 PM [facility] Name Value Range Interpretation Description Data Sup porting Code Source(s) Document(s ) Eosinophils 0.06 [facility] [#/volume] in 10*3/uL Hospital Blood by Automated count ID Date Data Source [id number] 09/30/2019 12:12:00 PM [facility] Name Value Range Interpretation Description Data Sup porting Code Source(s) Document(s ) Monocytes 0.37 [facility] [#/volume] in 10*3/uL Hospital Blood by Automated count ID Date Data Source [id number] 09/30/2019 12:12:00 PM [facility] Name Value Range Interpretation Description Data Sup porting Code Source(s) Document(s ) Lymphocytes 1.72 [place] [facility] [#/volume] in 10*3/uL [facility] Blood by Automated count ID Date Data Source [id number] 09/30/2019 12:12:00 PM [facility] Value Range Interpretation Description Data Sup porting Code Source(s) Document(s ) Neutrophils 3.76 [place] [facility] [#/volume] in 10*3/uL [facility] Blood by Automated count ID Date Data Source [id number] 09/30/2019 12:12:00 PM EST [facility] Value Range Interpretation Description Data Sup porting Code Source(s) Document(s ) Nucleated 0.0 % [facility] erythrocytes/10 Hospital 0 leukocytes [Ratio] in Blood by Automated count ID Date Data Source [id number] 09/30/2019 12:12:00 PM [facility] Value Range Interpretation Description Data Sup porting Code Source(s) Document(s ) Immature 0.2 % [facility] granulocytes/10 Hospital 0 leukocytes in Blood by Automated count ID Date Data Source [id number] 09/30/2019 12:12:00 PM EST [facility] Value Range Interpretation Description Data Sup porting Code Source(s) Document(s ) Basophils/100 0.3 % [facility] leukocytes in Hospital Blood by Automated count ID Date Data Source [id number] 09/30/2019 12:12:00 PM [facility] Value Range Interpretation Description Data Sup porting Code Source(s) Document(s ) Eosinophils/100 1.0 % [facility] leukocytes in Hospital Blood by Automated count ID Date Data Source [id number] 09/30/2019 12:12:00 PM [facility] Value Range Interpretation Description Data Sup porting Code Source(s) Document(s ) Monocytes/100 6.2 % [facility] leukocytes in Hospital Blood by Automated count ID Date Data Source [id number] 09/30/2019 12:12:00 PM [facility] Name Value Range Interpretation Description Data Sup porting Code Source(s) Document(s ) Lymphocytes/10 29.0 % [facility] 0 leukocytes Hospital in Blood by Automated count ID Date Data Source [id number] 09/30/2019 12:12:00 PM EST [facility] Name Value Range Interpretation Description Data Sup porting Code Source(s) Document(s ) Neutrophils/10 63.3 % [facility] 0 leukocytes Hospital in Blood by Automated count ID Date Data Source [id number] 09/30/2019 12:12:00 PM [facility] Name Value Range Interpretation Description Data Sup porting Code Source(s) Document(s ) Platelet mean 10.7 fL [facility] volume Hospital [Entitic volume] in Blood by Automated count ID Date Data Source [id number] 09/30/2019 12:12:00 PM [facility] Name Value Range Interpretation Description Data Sup porting Code Source(s) Document(s ) Platelets 243 [place] [facility] [#/volume] in 10*3/uL Hospital Blood by Automated count ID Date Data Source [id number] 09/30/2019 12:12:00 PM [facility] Name Value Range Interpretation Description Data Sup porting Code Source(s) Document(s ) Erythrocyte 12.5 % [facility] distribution Hospital width [Ratio] by Automated count ID Date Data Source [id number] 09/30/2019 12:12:00 PM [facility] Name Value Range Interpretation Description Data Sup porting Code Source(s) Document(s ) Erythrocyte mean 34.1 [facility] corpuscular g/dL Hospital hemoglobin concentration [Mass/volume] by Automated count ID Date Data Source [id number] 09/30/2019 12:12:00 PM [facility] Name Value Range Interpretation Description Data Sup porting Code Source(s) Document(s ) Erythrocyte 29.[address] [facility] corpuscular hemoglobin [Entitic mass] by Automated count ID Date Data Source [id number] 09/30/2019 12:12:00 PM [facility] Value Range Interpretation Description Data Sup porting Code Source(s) Document(s ) Erythrocyte 85.[address] [facility] corpuscular volume [Entitic volume] by Automated count ID Date Data Source [id number] 09/30/2019 12:12:00 PM [facility] Value Range Interpretation Description Data Sup porting Code Source(s) Document(s ) Hematocrit 44.9 % [facility] [Volume Hospital Fraction] of Blood by Automated count ID Date Data Source [id number] 09/30/2019 12:12:00 PM [facility] Value Range Interpretation Description Data Sup porting Code Source(s) Document(s ) Hemoglobin 15.3 g/dL [facility] [Mass/volume] Hospital in Blood ID Date Data Source [id number] 09/30/2019 12:12:00 PM [facility] Value Range Interpretation Description Data Sup porting Code Source(s) Document(s ) Erythrocytes 5.28 [facility] [#/volume] in 10*6/uL Hospital Blood by Automated count ID Date Data Source [id number] 09/30/2019 12:12:00 PM [facility] Value Range Interpretation Description Data Sup porting Code Source(s) Document(s ) Leukocytes 5.9 [facility] [#/volume] in 10*3/uL Hospital Blood by Automated count Procedure Social History Code Duration Value Status Description Data Source(s ) Smoking 05/05/2020 Denies Ever completed Denies Ever Smoked [facility] 10:51:00 PM EDT Smoked Medical C enter [...] ever completed Unknown if ever [facility] [place] smoked smoked Hospital Vital Signs ID Date Data Source UNK Name Value Range Interpretation Code Description Data Source(s) Body temperature 36.177968 36.221216 [facility] Respiratory rate 18 /min 18 /min [facility] Oxygen saturation 98 % 98 % [facility] in Arterial blood [facility] by Pulse oximetry Heart rate 89 /min 89 /min [facility] Diastolic blood 82 mm[Hg] 82 mm[Hg] [facility] pressure [facility] Center Systolic blood 122 mm[Hg] 122 mm[Hg] [facility] pressure Medical Center Diastolic blood 88 mm[Hg] 88 mm[Hg] [facility] Systolic blood 138 mm[Hg] 138 mm[Hg] [facility] Respiratory rate 18 /min 18 /min [facility] Heart rate 111 /min 111 /min [facility] Body temperature 37.27166 37.77138 [facility] Body temperature 98.7 [degF] 98.7 [degF] [facility] Body mass index 43.0 kg/m2 43.0 kg/m2 [facility] [place] (BMI) [Ratio] Hospital Body weight 299.83 299.83 [lb_av] [facility] [lb_av] Hospital Diastolic blood 69 mm[Hg] 69 mm[Hg] [facility] Systolic blood 111 mm[Hg] 111 mm[Hg] [facility] Respiratory rate 16 /min 16 /min [facility] Heart rate 73 /min 73 /min [facility] Body temperature 36.55764 36.73571 [facility] Body temperature 98.2 [degF] 98.2 [degF] [facility] Body mass index 43.0 kg/m2 43.0 kg/m2 [facility] (BMI) [Ratio] Hospital Body weight 299.83 299.83 [lb_av] [facility] [lb_av] Hospital Patient Treatment Plan of Care Planned Activity Planned Date Details Description Data Source (s) Ibuprofen 800 MG Oral [facility]t Center Cephalexin 500 MG Oral [facility] Capsule [place]
[2020-08-03] MEDS ORDERED: ACETAMINOPHEN 1000 MG/100 ML VIAL (NON FORMULARY) IVPB ONE (12:17)
[2020-08-03] MEDS ORDERED: METOCLOPRAMIDE HCL INJECTION 10 MG/2 ML VIAL IVPB ONE (12:17)
[2020-08-03] MEDS ORDERED: FAMOTIDINE 20 MG/50 ML IVPB 20 MG/50 ML MG IVPB ONE ×2 (12:17→13:00)
[2020-08-03] MEDS ORDERED: SODIUM CHLORIDE 1,000 ML IV STA (12:17)
[2020-08-03] MEDS ORDERED: DICYCLOMINE HCL 20 MG TABLET PO ONE (12:17)
[2020-08-03] MEDS ORDERED: MAG HYDROX/AL HYDROX/SIMETH 30 ML UNIT-DOSE CUP PO ONE (12:20)
--- NOTE | 2020-08-03 12:33 | PDOC ---
History of Present Illness - General History Source: Patient Exam Limitations: Clinical Condition - History of Present Illness Travel History: No Initial Comments: 08/03/20 12:28 Patient with past medical history of GERD and appendectomy presented with complaint of over week history of persistent epigastric and right upper quadrant pain radiating to the back which has been getting worse. Patient was seen a week ago in this ED for same symptoms and ultrasound done shows severe limited exam due to patient body habitus with no claim cholecystitis or pancreatitis. Patient report he was seen in urgent care 3 days ago for same symptoms and repeat ultrasound done at [facility] urgent care shows gallbladder sludge and prescribed omeprazole for pain but has not been help with abdominal pain. Patient report has make an attempt to follow-up with GI as instructed from last visit but unable to secure appointment until September and was advised by GI office they will contact him to try to squeeze him in but he has not heard back from the office. Patient report abdominal pain never improved from the ED visit the last time but has been progressively getting worse. Reported vomiting twice this morning. Denies fever, diarrhea, constipation, cough, shortness of breath, hemoptysis. Denies any other symptoms Timing/Duration: reports: getting worse Quality: reports: moderate, burning Abdominal Pain Onset Location: reports: RUQ, epigastric Pain Radiation: reports: back Activities at Onset: reports: none <Jem Cole - Last Filed: 08/03/20 18:19> <Adore Han - Last Filed: 08/04/20 09:47> - General Chief Complaint: Pain Stated Complaint: ABD PAIN Time Seen by Provider: 08/03/20 12:09 Past History - Medical History COPD: No - Immunization History Immunization Up to Date: Yes - Psycho-Social/Smoking History Smoking History: Never smoked Have you smoked in the past 12 months: No - Substance Abuse Hx (Audit-C & DAST Scrn) How often the patient has a drink containing alcohol: Never Score: In Men: 4 or > Positive; In Women: 3 or > Positive: 0 Screen Result (Pos requires Nsg. Audit-10AR): Negative In the last yr the pt used illegal drug/Rx for NonMed reason: No Score: Yes response is considered Positive: 0 Screen Result (Positive result requires Nsg. DAST-10): Negative <Jem Cole - Last Filed: 08/03/20 18:19> <GuilleVaneAdore - Last Filed: 08/04/20 09:47> - Medical History Allergies/Adverse Reactions: Allergies Allergy/AdvReac Type Severity Reaction Status Date / Time No Known Allergies Allergy Verified 08/03/20 11:26 Home Medications: Ambulatory Orders Famotidine [Pepcid -] 40 mg PO DAILY #30 tablet 08/03/20 Mag Hydrox/Aluminum Hyd/Simeth [Maalox Advanced Suspension] 30 ml PO Q8H PRN #200 ml 08/03/20 Ondansetron [Zofran *Odt*] 4 mg SL Q8H PRN #21 od.tablet 08/03/20 Review of Systems - Review of Systems Able to Perform ROS?: Yes Is the patient limited Green[place]ic proficient: No Constitutional: No: Chills, Fever, Malaise HEENTM: No: Symptoms Reported, See HPI, Eye Pain, Blurred Vision, Tearing, Recent change in vision, Double Vision, Cataracts, Ear Pain, Ocular Prothesis, Ear Discharge, Nose Pain, Nose Congestion, Tinnitus, Nose Bleeding, Hearing Lo ss, Throat Pain, Throat Swelling, Mouth Pain, Dental Problems, Difficulty Swallowing, Mouth Swelling, Other Respiratory: No: Symptoms reported, See HPI, Cough, Orthopnea, Shortness of Breath, SOB with Exertion, SOB at Rest, Stridor, Wheezing, Productive cough, Hemoptysis, Other Cardiac (ROS): No: Symptoms Reported, See HPI, Chest Pain, Edema, Irregular Heart Rate, Lightheadedness, Palpitations, Syncope, Chest Tightness, Other ABD/GI: Yes: Symptoms Reported, See HPI, Nausea, Vomiting, Abdominal cramping (epigastric, RUQ abd pain). No: Abd. Pain w/ defecation, Blood Streaked Bowels, Constipated, Diarrhea, Difficulty Swallowing, Poor Appetite, Rectal Bleeding, Indigestion : No: Symptoms Reported, Burning, Discharge, Frequency, Urgency Musculoskeletal: No: Symptoms Reported, Back Pain Integumentary: No: Symptoms Reported Neurological: No: Symptoms reported, Headache, Dizziness All Other Systems: Reviewed and Negative <Jem Cole - Last Filed: 08/03/20 18:19> *Physical Exam - Vital Signs Last Vital Signs Temp Pulse Resp BP Pulse Ox 97.9 F 99 H 18 134/96 100 08/03/20 11:26 08/03/20 11:26 08/03/20 11:26 08/03/20 11:26 08/03/20 11:26 - Physical Exam 08/03/20 12:33 GENERAL: Well developed, well nourished. Awake and alert. No acute distress. HEENT: Normocephalic, atraumatic. PERRLA, EOMI. No conjunctival pallor. Sclera are non-icteric. Moist mucous membranes. Oropharynx is clear. NECK: Supple. Full ROM. CARDIOVASCULAR: Regular rate and rhythm. No murmurs, rubs, or gallops. PULMONARY: No evidence of respiratory distress. Lungs clear to auscultation bilaterally. No wheezing, rales or rhonchi. ABDOMINAL: Soft. Moderate epigastric tenderness with mild tenderness right upper quadrant. Non-distended. No rebound or guarding. No organomegaly. Normoactive bowel sounds. MUSCULOSKELETAL Normal range of motion at all joints. SKIN: Warm and dry. Normal capillary refill. No rashes. No jaundice. No cyanosis NEUROLOGICAL: Alert, awake, appropriate. Gait is normal without ataxia. PSYCHIATRIC: Cooperative. Good eye contact. Appropriate mood General Appearance: Yes: Nourished, Appropriately Dressed, Apparent Distress, Mild Distress <Jem Cole - Last Filed: 08/03/20 18:19> - Vital Signs Last Vital Signs Temp Pulse Resp BP Pulse Ox 98.6 F 87 19 136/69 100 08/03/20 18:15 08/03/20 18:15 08/03/20 18:15 08/03/20 18:15 08/03/20 18:15 <Adore Han - Last Filed: 08/04/20 09:47> ED Treatment Course - LABORATORY CBC & Chemistry Diagram: 08/03/20 13:00 08/03/20 13:00 - RADIOLOGY Radiology Studies Ordered: Category Date Time Status ABDOMEN & PELVIS CT WITH CONTR [CT] Stat CT Scan 08/03/20 12:22 Ordered <Jem Cole - Last Filed: 08/03/20 18:19> - LABORATORY CBC & Chemistry Diagram: 08/03/20 13:00 08/03/20 13:00 - ADDITIONAL ORDERS Additional order review: 08/03/20 11:15 Urine Culture - Final Urine - Urine Clean Catch Lactose Fermenting Neg Bacilli Normal Urogenital Jaquelin 08/03/20 13:00 RBC 5.28 MCV 87.1 MCHC 34.0 RDW 13.6 MPV 9.5 Neutrophils % 70.3 Lymphocytes % 21.2 Monocytes % 7.4 Eosinophils % 0.7 D Basophils % 0.4 - Medications Given in the ED: ED Medications Discontinued Medications Generic Name Dose Route Start Last Admin Trade Name Isaac PRN Reason Stop Dose Admin Acetaminophen 1,000 mg 08/03/20 12:17 08/03/20 13:18 Ofirmev Injection - IVPB 08/03/20 12:18 1,000 mg ONCE ONE Administration Al Hydroxide/Mg Hydroxide 30 ml 08/03/20 12:20 08/03/20 13:18 Mylanta Oral Suspension - PO 08/03/20 12:21 30 ml ONCE ONE Administration Dicyclomine HCl 20 mg 08/03/20 12:17 08/03/20 13:18 Bentyl - PO 08/03/20 12:18 20 mg ONCE ONE Administration Sodium Chloride 1,000 mls @ 1,000 mls/hr 08/03/20 12:17 08/03/20 13:18 Normal Saline - IV 08/03/20 13:16 1,000 mls/hr ASDIR STA Administration Famotidine/Sodium Chloride 20 mg in 50 mls @ 100 mls/hr 08/03/20 12:17 08/03/20 13:18 Pepcid 20 Mg Premixed Ivpb - IVPB 08/03/20 12:46 100 mls/hr ONCE ONE Administration Metoclopramide HCl 10 mg 08/03/20 12:17 08/03/20 13:18 Reglan Injection - IVPB 08/03/20 12:18 10 mg ONCE ONE Administration <Adore Han - Last Filed: 08/04/20 09:47> Medical Decision Making - Medical Decision Making 08/03/20 12:31 Patient with past medical history of GERD presented with complaint of over week history of persistent epigastric and right upper quadrant pain radiating to the back which has been getting worse. Patient was seen a week ago in this ED for same symptoms and ultrasound done shows severe limited exam due to patient body habitus with no claim cholecystitis or pancreatitis. Patient report he was seen in urgent care 3 days ago for same symptoms and repeat ultrasound done at [facility] urgent care shows gallbladder sludge and prescribed omeprazole for pain but has not been help with abdominal pain. Patient report has make an attempt to follow-up with GI as instructed from last visit but unable to secure appointment until September and was advised by GI office they will contact him to try to squeeze him in but he has not heard back from the office. Patient report abdominal pain never improved from the ED visit the last time but has been progressively getting worse. Reported vomiting twice this morning. Denies fever, diarrhea, constipation, cough, shortness of breath, hemoptysis. Denies any other symptoms Exam significant for moderate tenderness to epigastric region with mild tenderness right upper quadrant. No tenderness to rest of abdomen. No guarding no rebound. Patient afebrile. Symptoms likely cholecystitis versus pancreatitis versus gastritis. CBC, CMP and lipase lab ordered. Abdominal and pelvic CT ordered with contrast given ultrasound being affected by patient's body habitus. Tylenol thousand milligrams IV, Reglan 10 mg IV and Pepcid 20 mg IV ordered abdominal pain. IV h ydration with normal saline ordered. Treat based on lab and imaging results 08/03/20 18:19 CBC and chemistry lab shows no acute normality except mild elevated LFTs. Abdominal and pelvic CT with IV contrast shows fatty liver with no acute findings consistent with previous ultrasound findings. Patient reported improvement of abdominal pain. Called and spoke to GI office Dr. Mancia which patient was referred to follow-up and office report trying squeezing patient in tomorrow after confirming office appointment tomorrow. Patient stable for discharge on Pepcid, Maalox and Zofran PRN for abdominal pain with GI follow-up <Jem Cole - Last Filed: 08/03/20 18:19> - Medical Decision Making I reviewed the case with the mid-level practitioner and agree with the mid-level practitioner's assessment, diagnosis and disposition. <Adore Han - Last Filed: 08/04/20 09:47> Discharge - Discharge Information Problems reviewed: Yes - Admission No <Jem Cole - Last Filed: 08/03/20 18:19> <Adore Han - Last Filed: 08/04/20 09:47> - Discharge Information Clinical Impression/Diagnosis: Fatty infiltration of liver Abdominal pain Qualifiers: Abdominal location: periumbilical Qualified Code(s): R10.33 - Periumbilical pain Condition: Stable Disposition: HOME - Additional Discharge Information Prescriptions: Mag Hydrox/Aluminum Hyd/Simeth [Maalox Advanced Suspension] 30 ml PO Q8H PRN #200 ml PRN Reason: abdominal discomfort Famotidine [Pepcid -] 40 mg PO DAILY #30 tablet Ondansetron [Zofran *Odt*] 4 mg SL Q8H PRN #21 od.tablet PRN Reason: nausea - Follow up/Referral Referrals: Luanne Ramirez [Primary Care Provider] - Austin Mancia DO [Staff Physician] - - Patient Discharge Instructions Additional Instructions: Your blood work is normal. Your abdominal CAT scan shows no acute abnormality and only shows fatty liver which needs to be followed by GI. You will be contacted by the GI office Dr. Mancia as they are trying to squeeze you in for an appointment and office said they will confirm their appointments tomorrow and will call you to try and squeeze you in. Take prescribed medication as prescribed for abdominal discomfort on to GI follow-up. Come back to the nearest emergency room if worsening abdominal pain symptoms - Post Discharge Activity
[2020-08-03] MEDS ORDERED: DICYCLOMINE HCL 10 MG CAPSULE ONE (13:00)
[2020-08-03] MEDS ORDERED: METOCLOPRAMIDE HCL INJECTION 10 MG/2 ML VIAL ONE (13:00)
[2020-08-03] MEDS ORDERED: MAG HYDROX/AL HYDROX/SIMETH 30 ML UNIT-DOSE CUP ONE (13:00)
[2020-08-03] MEDS ORDERED: ACETAMINOPHEN INJECTION 100 ML IVPB ONE (13:00)
[2020-08-03 13:27] LABS: BASO % 0.4 % (0-2.0); EOS % 0.7 % (0-4.5); HEMOGLOBIN 15.6 GM/dL (11.7-16.9); LYMPH % 21.2 % (8-40); MCH 29.6 pg (25.7-33.7); MEAN CELL VOLUME 87.1 fl (80-96); MEAN PLT VOLUME 9.5 fl (7.5-11.1); MONO % 7.4 % (3.8-10.2); NEUT % 70.3 % (42.8-82.8); PLATELET COUNT 254 K/MM3 (134-434); RBC 5.28 M/mm3 (4.00-5.60); RDW 13.6 % (11.9-15.9)
[2020-08-03 13:45] LABS: URINE APPEARANCE CLEAR; URINE BILIRUBIN NEGATIVE (NEGATIVE); URINE COLOR YELLOW; URINE GLUCOSE (UA) NEGATIVE (NEGATIVE); URINE KETONE NEGATIVE (NEGATIVE); URINE LEUK ESTERASE NEGATIVE (NEGATIVE); URINE NITRITE NEGATIVE (NEGATIVE); URINE PROTEIN NEGATIVE (NEGATIVE); URINE UROBILINOGEN 0.2 mg/dL (0.2-1.0)
[2020-08-03 13:46] LABS: ALBUMIN 4.2 g/dl (3.4-5.0); BILIRUBIN,TOTAL 0.6 mg/dL (0.2-1); BLOOD UREA NITROGEN 14.6 mg/dL (7-18); CALCIUM 9.4 mg/dL (8.5-10.1); CREATININE 0.9 mg/dL (0.55-1.3); POTASSIUM 4.4 mmol/L (3.5-5.1); TOT PROT 8.1 g/dl (6.4-8.2)
[2020-08-03 18:16] VITALS: BP 136/69; PULSE 87; TEMP 98.6
== END 2020-08-03 18:38 | disposition home or self-care (01) ==
LOC: JER 11:19
PROC: 3E0333Z Introduction of Anti-inflammatory into Peripheral Vein, Percutaneous Approach (ICD-10-PCS; principal; 2020-08-03)
PROC: 3E033GC Introduction of Other Therapeutic Substance into Peripheral Vein, Percutaneous Approach (ICD-10-PCS; 2020-08-03)
PROC: 3E0337Z Introduction of Electrolytic and Water Balance Substance into Peripheral Vein, Percutaneous Approach (ICD-10-PCS; 2020-08-03)
DX: K76.0 Fatty (change of) liver, not elsewhere classified (principal); R10.33 Periumbilical pain
CPT/HCPCS: 36415; 74177-TC; 80053; 81003; 83690; 85025; 87086; 99285-25; J0131; Q9967